=== PATIENT | female | born 1975 | race Caucasian/White ===

== ENCOUNTER → 2020-11-28 10:21 | Outpatient (BNVA) | payer MEDICARE, MEDICAID, SELFPAY | PROVIDERS: Family Provider Nurse Practitioner; PCP Nurse Practitioner; Visit Provider Nurse Practitioner Family | DX: S49.92XA Unspecified injury of left shoulder and upper arm, initial encounter (principal); M25.512 Pain in left shoulder; X58.XXXA Exposure to other specified factors, initial encounter | CPT/HCPCS: 73030 ==

== ENCOUNTER → 2021-02-20 11:33 | Outpatient (BNVA) | payer MEDICARE, SELFPAY | PROVIDERS: Family Provider Nurse Practitioner; PCP Nurse Practitioner; Visit Provider Nurse Practitioner Family | DX: Z01.419 Encounter for gynecological examination (general) (routine) without abnormal findings (principal) | CPT/HCPCS: 88175 ==

== ENCOUNTER → 2021-03-10 11:28 | Outpatient (BNVA) | payer MEDICARE, MEDICAID, SELFPAY | PROVIDERS: Family Provider Nurse Practitioner; PCP Nurse Practitioner; Visit Provider Obstetrics & Gynecology | DX: N93.9 Abnormal uterine and vaginal bleeding, unspecified (principal) | CPT/HCPCS: 88305 ==

== ENCOUNTER → 2021-03-23 14:26 | Outpatient (BNVA) | payer MEDICARE, MEDICAID, SELFPAY | PROVIDERS: Family Provider Nurse Practitioner; PCP Nurse Practitioner; Visit Provider Obstetrics & Gynecology | DX: N93.9 Abnormal uterine and vaginal bleeding, unspecified (principal) | CPT/HCPCS: 76830 ==

== ENCOUNTER → 2021-06-01 10:58 | Outpatient (BNVA) | payer MEDICARE, MEDICAID, SELFPAY | PROVIDERS: Family Provider Nurse Practitioner; PCP Nurse Practitioner; Visit Provider Obstetrics & Gynecology | DX: N81.4 Uterovaginal prolapse, unspecified (principal); N93.9 Abnormal uterine and vaginal bleeding, unspecified; R32 Unspecified urinary incontinence; Z20.822 Contact with and (suspected) exposure to COVID-19 | CPT/HCPCS: 87635 ==

== ENCOUNTER 2021-06-06 09:14 | Observation (INO) | payer MEDICARE, MEDICAID, SELFPAY ==
[2021-06-01 11:52] VITALS: BMI 33.4
[2021-06-01 12:27] LABS: Basophils # 0.1 10^3/uL (0.0-0.1); Basophils % 0.7 %; Eosinophils # 0.5 10^3/uL (0.0-0.8); Eosinophils % 4.3 %; Hemoglobin 13.8 g/dL (11.5-15.3); Lymphocytes # 3.2 10^3/uL (0.8-4.8); Lymphocytes % 30.7 %; Mean Corpuscular HGB Conc 32.9 g/dL (30.0-36.0); Mean Corpuscular Hemoglobin 32.7 pg (28.0-34.0); Mean Corpuscular Volume 99.5 fl (81-99); Mean Platelet Volume 11.2 fL (7.4-10.4); Monocytes # 0.4 10^3/uL (0.2-0.9); Neutrophils # 6.22 10^3/uL (1.8-7.7); Nucleated Red Blood Cells % 0 %; Platelet Count 344 10^3/cmm (130-400); Red Blood Count 4.22 10^6/uL (4.1-5.3); Red Cell Distribution Width 13.2 % (12.1-15.1); White Blood Count 10.4 10^3/uL (4.0-10.0)
--- NOTE | 2021-06-01 12:37 | ECG_ITS ---
[facility] Test Date: 2021-06-01 Pat Name: Martha Mccoy Department: Room: Gender: Female Physician Executive: : 1975 Requested By: Sue Muhammad Order Number: [id number] Shwetha MD: Radha Bhagat M.D. Measurements Intervals [place] Rate: 70 P: -88 [place]: 212 QRS: 44 QRSD: 134 T: 130 QT: 449 QTc: 485 Interpretive Statements ELECTRONIC ATRIAL PACEMAKER ELECTRONIC VENTRICULAR PACEMAKER ABNORMAL RHYTHM ECG INTERPRETATION BASED ON A DEFAULT AGE OF 40 YEARS Compared to ECG 08/08/2017 13:19:50 Sinus tachycardia no longer present Intraventricular conduction delay no longer present Electronically Signed On 06-02-2021 7:06:19 CDT by Radha Bhagat M.D. [email or web address] [email or web address] [email or web address] va [facility] center.Blekko/store/[id number] f
[2021-06-01 12:51] LABS: Alanine Aminotransferase 15 U/L (0-33); Albumin Level 3.8 g/dL (3.5-5.2); Alkaline Phosphatase 106 IU/L (35-105); Anion Gap 12.7 (5-19); Aspartate Amino Transferase 14 U/L (0-32); Blood Urea Nitrogen 5 mg/dL (6-20); Calcium 8.4 mg/dL (8.5-10.5); Carbon Dioxide 28 mmol/L (22-29); Chloride 96 mmol/L (98-107); Globulin 2.9 g/dL (1.3-4.6); Glomerular Filtration Rate 107.2 mL/min (90-130); Glucose 109 mg/dL (65-115); Osmolality Calculated 274 mOsm/kg (285-295); Potassium 3.7 mmol/L (3.5-5.1); Sodium 133 mmol/L (136-145); Total Bilirubin 0.3 mg/dL (0.15-1.2); Total Protein 6.7 g/dL (6.6-8.7)
--- NOTE | 2021-06-01 15:35 | ANES.PREANE2 ---
Pre-Anesthetic Assessment Pre-Anesthetic Assessment: Height/Weight: Height 1.74 m Weight 101.151 kg Preop Diagnosis: uterine prolapse, abnormal uterine bleeding, cystocele, urinary incontinenc Proposed Procedure: Operation Date: 06/06/21 07:00 Proposed Procedures p Total Vaginal Hysterectomy 56606 [id number] 37546 N81.4 N81.0 R32 N93.9(Not Applicable) - Sue Muhammad MD s Salpingo Oophorectomy (Open)(Not Applicable) - Sue Muhammad MD s Anterior Repair(Not Applicable) - Sue Muhammad MD s Posterior Repair(Not Applicable) - Sue Muhammad MD Was Beta Scottie taken within 24 hours: N/A Was Clonidine taken within 24 hours: N/A Exam: Pre-Anes Outpt Exam: alert, oriented x 3, clear to auscultation bilaterally and regular rate & rhythm Airway: Submandibular: WNL Cervical ROM: WNL Dentition: Chipped and Other (extremely poor dentition w many missing, fractured, loose and decayed; discussed dental injury) Pulmonary: Pulmonary: COPD, JONES, PND and SOB CV/HEM: CV/HEM: CHF Comments: JAMES w EF 20-25 %, global hypokinesia; AICD/Pacemaker device; Hepatic: Hepatic: None reported GI: GI: None reported Metabolic: Comments: Obesity Neuropsych: Neuropsych: None reported Anesthetic Plan: ASA status: 4 Anesthesia: General (Discussed need for Arterial line and 2nd large bore IV; possible blood transfusions) Risk of > 500 ml blood loss (7ml/kg in children): Yes, adequate IV access and fluids planned PFSH Anesthesia PFSH: Medical History CHF (congestive heart failure) Chronic obstructive pulmonary disease, unspecified Depression Gastric reflux Gingivitis History of pacemaker Vitamin D deficiency Surgical History History of cholecystectomy History of implantable cardiac defibrillator (ICD) History of tubal ligation Family History Mother Cancer colon Thyroid disease Grandfather Cancer Paternal - pancreatic Grandmother Cancer Maternal - colon Thyroid disease Maternal and Paternal Grandfather Cancer Maternal - prostate Stroke Paternal Daughter Clotting disorder Antiphospholipid syndrome Father Hyperlipidemia Hypertension Denies family history of Diabetes CAD (coronary artery disease) Chronic kidney disease (CKD) Bleeding disorder Female Reproductive History: Date of last menstrual period: 04/28/21 Data Anesthesia CBC & Chem 7: 06/01/21 12:08 06/01/21 12:08 Other Labs: Laboratory Results - last 48 hr 06/01/21 06/01/21 12:08 12:08 WBC 10.4 H RBC 4.22 Hgb 13.8 Hct 42.0 MCV 99.5 H MCH 32.7 MCHC 32.9 RDW 13.2 Plt Count 344 MPV 11.2 H Neut % (Auto) 60.0 Lymph % (Auto) 30.7 [place] % (Auto) 4.0 Eos % (Auto) 4.3 Baso % (Auto) 0.7 Neut # (Auto) 6.22 Lymph # (Auto) 3.2 [place] # (Auto) 0.4 Eos # (Auto) 0.5 Baso # (Auto) 0.1 Nucleated RBC % (auto) 0 Nucleated RBCs # 0.0 Sodium 133 L Potassium 3.7 Chloride 96 L Carbon Dioxide 28 Anion Gap 12.7 BUN 5 L Creatinine 0.6 GFR Calculation 107.2 Glucose 109 Calculated Osmolality 274 L Calcium 8.4 L Total Bilirubin 0.3 AST 14 ALT 15 Alkaline Phosphatase 106 H Total Protein 6.7 Albumin 3.8 Globulin 2.9 Cardiac Studies: No Data to Display
--- NOTE | 2021-06-01 15:38 | SUR.PREOP ---
[address] miller with anesthesia and asked if pt should take her entresto am of surgery and stated that she should not take this rx on day of surgery, called pt and informed her of this and verbalized understanding
[2021-06-06] VITALS (17 sets, daily range): BP systolic 94–113; BP diastolic 36–73; PULSE 70–80; RESP 15–23; TEMP 36.3–36.9; O2SAT 92–96
[2021-06-06] MEDS: sodium chloride 0.9% 1,000 ML 30 ML IV (06:32)
[2021-06-06] MEDS: acetaminophen 1,000 MG/100 ML PIGGYBACK 400 MG IV (06:40)
[2021-06-06] MEDS: phenazopyridine 100 mg Tablet 200 MG PO (06:40)
[2021-06-06] MEDS: CELEcoxib 100 mg Capsule 400 MG PO (06:40)
[2021-06-06] MEDS: gabapentin 300 mg Capsule PO (06:40)
[2021-06-06] MEDS: ketorolac 30 mg/mL INJ IVP ×3 (06:42→18:38)
--- NOTE | 2021-06-06 06:59 | W.PM.OPSUD ---
Surgery/Procedure H&P Update DATE OF PROCEDURE: June 06, 2021 DATE H&P PERFORMED: 06/01/21 H&P UPDATE INFORMATION: I have reviewed H&P completed within last 30 days, I have examined patient prior to procedure and No changes to prior documentation PREOP DIAGNOSIS: uterine prolapse, abnormal uterine bleeding, cystocele, urinary incontinenc PLANNED PROCEDURE: Operation Date: 06/06/21 07:00 Proposed Procedures p Total Vaginal Hysterectomy 00718 18194 60588 N81.4 N81.0 R32 N93.9(Not Applicable) - Sue Muhammad MD s Salpingo Oophorectomy (Open)(Not Applicable) - Sue Muhammad MD s Anterior Repair(Not Applicable) - Sue Muhammad MD s Posterior Repair(Not Applicable) - Sue Muhammad MD
[2021-06-06 07:00] LABS: OR HCG Qualitative Urine Negative (Negative)
[2021-06-06] MEDS: vasopressin 20 unit/mL INJ 8 UNIT INJECTION (07:54)
--- NOTE | 2021-06-06 08:07 | ANES.PROC ---
Anesthesia Procedures Procedure/Date: 06/06/21 Arterial Line: Time Out Performed: Yes Consent: requested by attending/covering physician, from patient, risks and benefits reviewed and patient agrees to proceed Size (Gauge): 20 Technique Used: direct puncture technique Post-Procedure: dry sterile dressing placed Patient Tolerated Procedure: well Complications: none Site: right and radial
--- NOTE | 2021-06-06 09:06 | PM.OP ---
Operative Report Date of procedure: June 06, 2021 Pre-op Diagnosis: uterine prolapse, abnormal uterine bleeding, cystocele, urinary incontinenc Post-op diagnosis: other Post-op Diagnosis: no urinary incontinence post procedure Post-op Findings: enlarged uterus, normal appearing ovaries. No fallopian tubes present. Loose perineal body. No urinary incontinence Procedure Done: total vaginal hysterectomy, perineorrhaphy, cystoscopy Specimens removed/disposition: uterus to pathology Surgeon: Sue Muhammad Anesthesia: General Estimated blood loss (mL): 100 IV fluids (mL): 800 Urine output (mL): 100 Complications: none Findings: enlarged uterus, normal appearing ovaries. No fallopian tubes present. Loose perineal body. No urinary incontinence Condition: stable Disposition: floor Procedure: The patient was taken to the operating room where general anesthesia was administered and found to be adequate. She was prepped and draped in the normal sterile fashion in the dorsal lithotomy position in [facility]. A Sun catheter was placed. A weighted speculum was placed into the vagina and the anterior and posterior lip of the cervix was grasped with a Mcgraw tenaculum. 10 mL of dilute Pitressin was injected at the vesicovaginal junction. A circumferential incision was made at the vesicovaginal junction and the vaginal mucosa reflected cephalad. The posterior peritoneum was entered sharply with the Metzenbaum scissors and the long weighted speculum replaced. Using the Lori clamps the uterosacral ligaments were clamped cut and suture-ligated. Then sequentially the uterine arteries and cardinal ligaments were clamped cut and suture-ligated. A single-tooth tenaculum was used to deliver the uterus. The utero-ovarian ligaments were clamped cut and suture-ligated bilaterally and the specimen was removed. The bilateral ovaries were visualized and found to be normal. The fallopian tubes were not identified. The peritoneum was closed with a pursestring using 2-0 Vicryl. The vaginal cuff was closed with 0 Vicryl in a running locked pattern incorporating the uterosacral ligaments into the lateral aspects of the vaginal cuff. The Sun catheter was removed and the cystoscope advanced into the bladder. The patient was given indigo carmine and bilateral spill was noted. There were no injuries or deficits noted in the bladder. The cystoscope was removed. Pressure was applied to the bladder. No incontinence was witnessed. The Sun was replaced. Attention was then turned to the perineorrhphy. Allis clamps were placed on the posterior fourchette. A 3 cm wedge of the fourchette was removed. This was repaired in the usual fashion with O-vicryl in a continuous running stitch. Vaginal packing was placed. The patient tolerated the procedure well. Sponge, lap and needle counts were correct times three. She was taken to the recovery room in stable condition.
[2021-06-06] MEDS: HYDROcodone-acetaminophen 5-325 mg Tablet PO ×2 (10:43→21:18)
[2021-06-06] MEDS: dextrose 5%-lactated ringers 1,000 ML 125 ML IV ×2 (10:44→20:13)
--- NOTE | 2021-06-06 10:53 | P.ANESUD_ITS ---
Pre-Anesthetic Update Pre-Anesthetic Assessment: Date of Surgery/Procedure: 06/06/21 Preop Patricia gnosis: uterine prolapse, abnormal uterine bleeding, cystocele, urinary incontinenc Proposed Procedure: Operation Date: 06/06/21 07:00 Proposed Procedures p Total Vaginal Hysterectomy 28123 21752 84190 N81.4 N81.0 R32 N93.9(Not Applicable) - Sue Muhammad MD s Salpingo Oophorectomy (Open)(Not Applicable) - Sue Muhammad MD s Anterior Repair(Not Applicable) - Sue Muhammad MD s Posterior Repair(Not Applicable) - Sue Muhammad MD Any changes to Pre-Anesthetic Assessment?: No Last Intake: Intake Last Liquid Date 06/05/21 Last Liquid Time 00:00 Last Solid Date 06/05/21 Last Solid Time 20:00 Labs Last 48hrs: Laboratory Results - last 48 hr 06/06/21 06:58 Urine HCG, Qual Negative Vitals: Temperature 98.0 F 06/06/21 10:00 Temperature Source Axillary 06/06/21 10:00 Pulse Rate 70 06/06/21 10:30 Respiratory Rate 15 06/06/21 10:30 Blood Pressure 96/57 06/06/21 10:30 Blood Pressure Kortney n 70 06/06/21 10:30 Blood Pressure Pos ition Supine 06/06/21 10:30 Pulse Oximetry 93 06/06/21 10:30 Oxygen Delivery Me thod 06/06/21 10:30 Oxygen Flow Rate 2 06/06/21 10:30 Exam: Pre-Anes Outpt Exam: alert, oriented x 3 and clear to auscultation bilaterally Cardiac Studies: No Data to Display
[2021-06-06] MEDS: acetaminophen 325 mg Tablet 650 MG PO (14:35)
--- NOTE | 2021-06-06 15:50 | PC.NURSE ---
ultrasound at the bedside, pt off the monitor
[2021-06-06] MEDS: docusate sodium 100 mg Capsule PO (18:38)
[2021-06-06] MEDS: potassium chloride ER 10 mEq Tablet PO (18:39)
[2021-06-06] MEDS: FUROsemide 40 mg Tablet PO (18:39)
[2021-06-06] MEDS: alum-mag-hydroxide-sime 30 mL UDC PO (21:12)
[2021-06-06] MEDS: NON-FORMULARY MEDICATION (Sacubitril-Valsartan [Entresto] 49-51 mg Tablet) 1 EACH PO (21:13)
[2021-06-06] MEDS: carvedilol 3.125 mg Tablet PO (21:14)
[2021-06-06] MEDS: duloxetine 30 mg Capsule PO (21:15)
[2021-06-07 01:30] VITALS: BP 101/63; PULSE 70; RESP 16; O2SAT 97
[2021-06-07] MEDS: ketorolac 30 mg/mL INJ IVP (01:56)
[2021-06-07] MEDS: HYDROcodone-acetaminophen 5-325 mg Tablet PO ×2 (03:27→11:05)
[2021-06-07 03:50] VITALS: BP 107/63; PULSE 70; TEMP 36.7; O2SAT 98
[2021-06-07 05:20] LABS: Hematocrit 35.8 % (37.0-47.0); Hemoglobin 12.1 g/dL (11.5-15.3); Mean Corpuscular HGB Conc 33.8 g/dL (30.0-36.0); Mean Corpuscular Hemoglobin 33.6 pg (28.0-34.0); Mean Corpuscular Volume 99.4 fl (81-99); Mean Platelet Volume 10.6 fL (7.4-10.4); Platelet Count 344 10^3/cmm (130-400); White Blood Count 19.7 10^3/uL (4.0-10.0)
[2021-06-07] MEDS: alum-mag-hydroxide-sime 30 mL UDC PO (06:10)
[2021-06-07] MEDS: NON-FORMULARY MEDICATION (Sacubitril-Valsartan [Entresto] 49-51 mg Tablet) 1 EACH PO (09:12)
[2021-06-07] MEDS: docusate sodium 100 mg Capsule PO (09:13)
[2021-06-07] MEDS: spironolactone 25 mg Tablet 12.5 MG PO (09:13)
[2021-06-07] MEDS: calcium carbonate 500 mg Chew Tablet 1000 MG PO (09:13)
[2021-06-07] MEDS: duloxetine 30 mg Capsule PO (09:13)
[2021-06-07] MEDS: FUROsemide 40 mg Tablet PO (09:13)
[2021-06-07] MEDS: potassium chloride ER 10 mEq Tablet PO (09:14)
[2021-06-07] MEDS: carvedilol 3.125 mg Tablet PO (09:14)
[2021-06-07 09:19] VITALS: BP 106/65; PULSE 72; RESP 16; TEMP 36.4; O2SAT 95
--- NOTE | 2021-06-07 10:14 | PM.DCS ---
Discharge Providers Date of Admission: 06/06/21 09:14 Date of Discharge: June 07, 2021 Attending Provider at Admission: Sue Muhammad MD Attending Provider at Discharge: Sue Muhammad MD Primary Care Provider: CARLOS Castellano Diagnoses at Discharge Discharge Diagnosis (1) Postoperative state: Status: Acute Reason for Visit Reason for Visit: total vaginal hysterectomy Physical Exam Narrative: EXAM NARRATIVE: The patient is doing well this morning. No concerns or complaints. Packing and tran catheter has been removed. Const: COMMON NORMALS: no acute distress, average body habitus, patient oriented x3, no limitations, healthy appearing and alert GENERAL APPEARANCE: cooperative, comfortable, well kempt and well developed ORIENTATION/CONSCIOUSNESS: Yes awake, Yes oriented to person, Yes oriented to place and Yes oriented to time Resp: COMMON NORMALS: normal respiratory effort EFFORT & INSPECTION: Yes able to speak in complete sentences GI: COMMON NORMALS: Soft to palpation and non-tender PALPATION: Yes Soft to palpation : COMMON NORMALS: Yes normal external appearance Extremity: COMMON NORMALS: no clubbing, cyanosis or edema and no calf tenderness Neuro: COMMON NORMALS: patient oriented x3 SENSORIUM/ORIENTATION: Yes alert, Yes oriented to person, Yes oriented to place and Yes oriented to time Psych: COMMON NORMALS: mental status grossly normal, cooperative, normal affect and speech normal APPEARANCE: Yes grossly normal and Yes well kempt ATTITUDE: Yes calm and Yes engaged ACTIVITY/MOTOR BEHAVIOR: Yes appropriate eye contact SPEECH: Yes normal speech Urinary Catheter Management^: Tran: Cath Placed During This Visit: yes, but has since been removed by the nurse Reason for Continuing Indwelling Catheter: Decision to DC Catheter Urinary Catheter Date of Insertion: 06/06/21 Urinary Catheter Time of Insertion: 07:34 Date Urinary Catheter Removed: 06/07/21 Time Urinary Catheter Discontinued: 07:15 Discharge Data Data Completed and Pending: Completed Studies During Hospitalization Category Date Time Status Pathology: Surgic al [PTH] Routine Pth 06/06/21 09:52 Completed Labs from last 24 hours 06/07/21 05:12 WBC 19.7 H RBC 3.60 L Hgb 12.1 Hct 35.8 L MCV 99.4 H MCH 33.6 MCHC 33.8 RDW 13.0 Plt Count 344 MPV 10.6 H Vitals: Last Vital Signs Temp 97.5 F L 06/07/21 09:19 Pulse 72 06/07/21 09:19 Resp 16 06/07/21 09:19 BP 106/65 06/07/21 09:19 Pulse Ox 95 06/07/21 09:19 Discharge Plan Discharge Patient Disposition: Home Condition: Stable Prescriptions: New hydrocodone-acetaminophen 5-325 mg Tablet 1 tab PO Q4H PRN (Reason: Moderate To Severe Pain) Qty: 30 RF: 0 Continued carvedilol [Coreg] 3.125 mg tablet 3.125 mg PO BID RF: 0 nitroglycerin 0.4 mg tablet, sublingual 0.4 mg SUBLINGUAL Q5M PRN (Reason: chest pain) RF: 0 potassium chloride 10 mEq capsule, extended release 10 meq PO BID RF: 0 furosemide [Lasix] 40 mg tablet 40 mg PO Q12H RF: 0 spironolactone [Aldactone] 25 mg tablet 12.5 mg PO DAILY RF: 0 albuterol sulfate 2.5 mg /3 mL (0.083 %) solution for nebulization 2.5 mg INHALATION Q4H PRN (Reason: bronchospasm) Qty: 180 RF: 5 albuterol sulfate [ProAir HFA] 90 mcg/actuation HFA aerosol inhaler 2 puff inhalation QID PRN (Reason: shortness of breath or wheezing) Qty: 8.5 RF: 2 duloxetine 30 mg capsule,delayed release(DR/EC) 30 mg PO BID 90 Days Qty: 180 RF: 1 ibuprofen 800 mg tablet 800 mg PO TID PRN (Reason: pain) 14 Days Qty: 42 RF: 0 aspirin 325 mg Tablet 325 mg PO DAILY RF: 0 nystatin 100,000 unit/gram ointment 1 applic TOPICAL BEDTIME RF: 0 triamcinolone acetonide 0.1 % ointment 1 applic TOPICAL TID PRN (Reason: abrasions) RF: 0 mupirocin 2 % ointment 1 applic TOPICAL TID PRN (Reason: rash) RF: 0 chlorhexidine gluconate [Peridex] 0.12 % mouthwash 15 ml BUCCAL BID PRN (Reason: mouth infection) RF: 0 Entresto 49-51 mg Tablet 1 tab PO BID RF: 0 Discharge Orders: Discharge Order (Routine); Ordered 06/07/21 Ordered By: Sue Muhammad Referrals: Sue Muhammad MD [Physician] - 06/19/21 8:45 am Patient Instructions: Spironolactone (By mouth), Ibuprofen (By mouth), Potassium Chloride (By mouth), Nystatin (On the skin), Triamcinolone (On the skin), Vaginal Hysterectomy (GEN), OB Discharge Report, OB Food/Drug Interaction Guide, Opioid Safety Discharge Attestations Time Spent in Discharge Care*: less than 30 min Quality Metrics Clinical Quality Measures During this hospital stay, did patient experience: None Coding Level of Care Code Acute [facility] note Diagnoses Postoperative state Z98.890
[2021-06-07 13:10] VITALS: BP 111/58; PULSE 70; RESP 16; TEMP 36.7; O2SAT 95
--- NOTE | 2021-06-07 14:44 | PC.NURSE ---
Pt home medication, Phillip, left at hospital. Nurse antonetteer and primary nurse counted 120 pills in med room under video surveillance. Nurse field marketing manager taking medication to patients home in [place].
--- NOTE | 2021-06-07 16:48 | ANE.PACU2 ---
Inpatient post-anesthesia follow up: Airway intact: Yes Vital signs: Temperature 98.0 F Pulse Rate 70 Respiratory Rate 16 Blood Pressure 111/58 Pulse Oximetry 95 Oxygen Delivery Me thod Room Air Oxygen Flow Rate 2 Fraction of Inspir ed Oxygen Hydration adequate: Yes Nausea and vomiting: No Pain level: 3 Mental status: Baseline
--- NOTE | 2021-06-09 14:13 | PC.RESP ---
PULMONARY REHAB INFORMATION SENT TO PATIENT.
== END 2021-06-07 13:10 | disposition home or self-care (01) ==
LOC: OBGYN 09:15
PROVIDERS: Anesthesiology; Admitting Provider Obstetrics & Gynecology; PCP Nurse Practitioner; Visit Provider Obstetrics & Gynecology
PROC: (CPT 12002; principal; 2021-06-06 07:00)
PROC: (CPT 58661; 2021-06-06 07:00)
PROC: 0TJB8ZZ Inspection of Bladder, Via Natural or Artificial Opening Endoscopic (ICD-10-PCS; CPT 52000; 2021-06-06 07:00)
PROC: 0DQW0ZZ Repair Peritoneum, Open Approach (ICD-10-PCS; CPT 56810; 2021-06-06 07:00)
DX: N81.4 Uterovaginal prolapse, unspecified (principal); N93.9 Abnormal uterine and vaginal bleeding, unspecified; R32 Unspecified urinary incontinence; J44.9 Chronic obstructive pulmonary disease, unspecified; I50.9 Heart failure, unspecified; E66.9 Obesity, unspecified; Z68.33 Body mass index [BMI] 33.0-33.9, adult; K21.9 Gastro-esophageal reflux disease without esophagitis; E55.9 Vitamin D deficiency, unspecified; Z95.0 Presence of cardiac pacemaker
CPT/HCPCS: 12002; 58260; 36415; 80053; 81025; 84703; 85025; 85027; 87086; 88307; 93005; 96365; 96374; G0378; J0330; J0690; J1100; J1885; J2405; J3010; J3490; J7030

== ENCOUNTER → 2021-06-14 09:40 | Outpatient (BNVA) | payer MEDICARE, MEDICAID, SELFPAY | PROVIDERS: PCP Nurse Practitioner; Visit Provider Nurse Practitioner | DX: Z13.6 Encounter for screening for cardiovascular disorders (principal); J44.9 Chronic obstructive pulmonary disease, unspecified; E55.9 Vitamin D deficiency, unspecified; K05.10 Chronic gingivitis, plaque induced; F32.9 Major depressive disorder, single episode, unspecified; M25.512 Pain in left shoulder | CPT/HCPCS: 80053; 80061; 82306; 85025 ==

== ENCOUNTER → 2021-07-07 09:38 | Outpatient (BNVA) | payer MEDICARE, MEDICAID, SELFPAY | PROVIDERS: PCP Nurse Practitioner; Visit Provider Nurse Practitioner | DX: R73.9 Hyperglycemia, unspecified (principal) | CPT/HCPCS: 83036 ==

== ENCOUNTER → 2021-12-04 14:32 | Outpatient (BNVA) | payer MEDICARE, MEDICAID, SELFPAY | PROVIDERS: PCP Nurse Practitioner; Visit Provider Nurse Practitioner Family | DX: I50.9 Heart failure, unspecified (principal); R73.9 Hyperglycemia, unspecified; E55.9 Vitamin D deficiency, unspecified; J44.9 Chronic obstructive pulmonary disease, unspecified; M25.512 Pain in left shoulder | CPT/HCPCS: 73030; 80053; 80061; 82306; 82607; 83036; 84443; 85025 ==

== ENCOUNTER → 2022-01-22 14:30 | Outpatient (BNVA) | payer MEDICARE, MEDICAID, SELFPAY | PROVIDERS: PCP Nurse Practitioner; Visit Provider Nurse Practitioner | DX: M25.562 Pain in left knee (principal) | CPT/HCPCS: 73562 ==

== ENCOUNTER 2022-03-01 09:16 | Outpatient (CLI) | payer MEDICARE, MEDICAID, SELFPAY ==
--- NOTE | 2022-03-01 | CT_ITS ---
WS: [id number] CT ABDOMEN PELVIS TECHNIQUE: Noncontrast CT of the abdomen and pelvis with coronal and sagittal reformatted images. CLINICAL INFORMATION: R15.9 - Full incontinence of feces COMPARISON: None. DLP: 1213.[address] scans at [facility] use at least one of these dose optimization techniques: automated e xposure control; mA and/or kV adjustment per patient size (includes targeted exams where dose is matc hed to clinical indication); or iterative reconstruction. FINDINGS: Prior postoperative changes hysterectomy and cholecystectomy. Noncontrast liver is normal. Normal non contrast spleen. Normal GE junction. Lung bases are well aerated. Slight subsegmental atelectasis LEF T lower lobe. Adrenal glands are normal. No hydronephrosis in either kidney. Normal noncontrast pancreas. Normal ca liber abdominal aorta. Mild aortic calcification. Normal sigmoid colon. A few diverticuli. No evidenc e of acute diverticulitis. No evidence of high-grade small or large bowel destruction. No abdominal or pelvic lymphadenopathy. No inguinal lymphadenopathy. Tiny fat-containing umbilical he rnia. Lobulated RIGHT ovarian cystic lesion largest measuring 2.2 x 2.5 cm. This can be followed up w ith ultrasound. Benign-appearing bone island RIGHT ilium. CT/CT abdomen pelvis wo con [id number] IMPRESSION: 1. Prior hysterectomy and cholecystectomy. 2. A few sigmoid diverticuli. No evidence of acute diverticulitis 3. Colon otherwise appears normal. Normal appendix in the RIGHT lower quadrant . 4. Lobulated RIGHT ovarian cystic lesions the largest measuring 2.5 x 2.2 CM. This can be followed up with ultrasound. 5. No free fluid in the abdomen or pelvis. 6. Slight subsegmental atelectasis LEFT lower lobe. 7. No other acute findings.
== END 2022-03-01 09:17 | disposition home or self-care (01) ==
LOC: RAD 09:23
PROVIDERS: PCP Nurse Practitioner; Visit Provider Nurse Practitioner
DX: R15.9 Full incontinence of feces (principal)
CPT/HCPCS: 74176

== ENCOUNTER → 2022-03-13 15:33 | Outpatient (BNVA) | payer MEDICARE, MEDICAID, SELFPAY | PROVIDERS: PCP Nurse Practitioner; Visit Provider Nurse Practitioner | DX: J44.9 Chronic obstructive pulmonary disease, unspecified (principal) | CPT/HCPCS: 80048 ==

== ENCOUNTER 2022-04-13 13:17 | Outpatient (CLI) | payer MEDICARE, MEDICAID, SELFPAY ==
--- NOTE | 2022-04-13 13:00 | US_ITS ---
WS: [id number] TRANSABDOMINAL PELVIC ULTRASOUND HISTORY: N83.209 - Unspecified ovarian cyst, unspecified side COMPARISON: CT 03/01/2020 and prior ultrasound 03/23/2021 Uterus has been removed. No midline mass. Right ovary: 4.1 cm x 2.2 cm x 2.5 cm; limited evaluation of the RIGHT ovary. The ovary appears very slightly enlarged. Small cystlike structures are identified. No transvaginal imaging is performed. Left ovary: 2.2 cm x 1.9 cm x 1.7 cm; limited visualization. No free fluid in the cul-de-sac. US/US pelvic complete* [id number] IMPRESSION: 1. Hysterectomy since the prior study. 2. This study is inadequate to evaluate the ovaries for a possible mass or dane luate cystic masses. Only transabdominal abdominal imaging is submitted. Recomm end transvaginal imaging at no additional charge.
== END 2022-04-13 13:18 | disposition home or self-care (01) ==
LOC: RAD 13:18
PROVIDERS: PCP Nurse Practitioner; Visit Provider Nurse Practitioner
DX: N83.209 Unspecified ovarian cyst, unspecified side (principal); Z90.710 Acquired absence of both cervix and uterus
CPT/HCPCS: 76856

== ENCOUNTER 2022-06-12 12:02 | Outpatient (CLI) | payer OTHER, MEDICAID, SELFPAY ==
--- NOTE | 2022-06-12 12:15 | US_ITS ---
WS: [id number] TRANSABDOMINAL PELVIC AND TRANSVAGINAL PELVIC ULTRASOUND HISTORY: N83.201 - Unspecified ovarian cyst, right side COMPARISON: 04/13/2022 Status post hysterectomy. No midline pelvic mass identified. Right ovary: 4.0 cm x 2.3 cm x 3.5 cm. RIGHT ovary is identified and contains several small follicles and a very small cysts. The cyst measures 2.3 x 2.5 x 2.3 cm. Normal vascularity in the adjacent ova ry. Left ovary: Not identified. No adnexal mass. No free fluid. US/US pelvic with transvaginal IMPRESSION: 1. Status post hysterectomy. No midline mass. 2. Very small RIGHT ovarian cyst with a maximum diameter of 2.5 cm. No solid m ass. 3. The LEFT ovary is not identified. On a recent CT of 03/01/2022 the LEFT ovar y is very high in the LEFT adnexa and would probably not be visualized on trans abdominal or transvaginal imaging.
== END 2022-06-12 12:03 | disposition home or self-care (01) ==
LOC: RAD 12:03
PROVIDERS: PCP Nurse Practitioner; Visit Provider Nurse Practitioner
DX: Z76.89 Persons encountering health services in other specified circumstances (principal)
CPT/HCPCS: 76830; 76856

== ENCOUNTER → 2022-07-17 09:36 | Outpatient (BNVA) | payer MEDICARE, MEDICAID, SELFPAY | PROVIDERS: PCP Nurse Practitioner; Visit Provider Nurse Practitioner | DX: J44.9 Chronic obstructive pulmonary disease, unspecified (principal); K64.4 Residual hemorrhoidal skin tags; F41.8 Other specified anxiety disorders; E55.9 Vitamin D deficiency, unspecified; Z23 Encounter for immunization | CPT/HCPCS: 80053; 81000; 82306; 84443; 85025 ==

== ENCOUNTER → 2022-10-24 08:31 | Outpatient (BNVA) | payer MEDICARE, MEDICAID, SELFPAY | PROVIDERS: PCP Nurse Practitioner; Visit Provider Nurse Practitioner | DX: E55.9 Vitamin D deficiency, unspecified (principal); F41.8 Other specified anxiety disorders; K05.10 Chronic gingivitis, plaque induced; M54.9 Dorsalgia, unspecified; M54.50 Low back pain, unspecified | CPT/HCPCS: 80053; 82306; 84443; 85025; 85651; 86140 ==

== ENCOUNTER → 2022-11-21 09:01 | Outpatient (BNVA) | payer MEDICARE, MEDICAID, SELFPAY | PROVIDERS: PCP Nurse Practitioner; Visit Provider Nurse Practitioner | DX: M54.50 Low back pain, unspecified (principal) | CPT/HCPCS: 72100 ==

== ENCOUNTER → 2023-01-16 12:30 | Outpatient (BNVA) | payer MEDICARE, MEDICAID, SELFPAY | PROVIDERS: PCP Nurse Practitioner; Visit Provider Nurse Practitioner | DX: M25.551 Pain in right hip (principal); M25.552 Pain in left hip; F41.8 Other specified anxiety disorders | CPT/HCPCS: 73522 ==

== ENCOUNTER → 2023-05-29 15:16 | Outpatient (BNVA) | payer MEDICARE, MEDICAID, SELFPAY | PROVIDERS: PCP Nurse Practitioner; Visit Provider Nurse Practitioner | DX: M51.37 Other intervertebral disc degeneration, lumbosacral region (principal); J44.9 Chronic obstructive pulmonary disease, unspecified; F41.8 Other specified anxiety disorders; K05.10 Chronic gingivitis, plaque induced; E55.9 Vitamin D deficiency, unspecified; K64.4 Residual hemorrhoidal skin tags; L30.8 Other specified dermatitis | CPT/HCPCS: 80053; 82306; 82607; 84443 ==

== ENCOUNTER → 2023-08-21 15:18 | Outpatient (BNVA) | payer MEDICARE, MEDICAID, SELFPAY | PROVIDERS: PCP Nurse Practitioner; Visit Provider Nurse Practitioner | DX: F41.8 Other specified anxiety disorders (principal) | CPT/HCPCS: 81000 ==

== ENCOUNTER → 2023-09-10 15:37 | Outpatient (BNVA) | payer MEDICARE, MEDICAID, SELFPAY | PROVIDERS: PCP Nurse Practitioner; Visit Provider Nurse Practitioner Family | DX: R05.9 Cough, unspecified (principal) | CPT/HCPCS: 87400; 87426 ==

== ENCOUNTER → 2023-10-31 16:04 | Outpatient (BNVA) | payer MEDICARE, MEDICAID, SELFPAY | PROVIDERS: PCP Nurse Practitioner; Visit Provider Nurse Practitioner | DX: E87.6 Hypokalemia (principal) | CPT/HCPCS: 80048 ==

== ENCOUNTER → 2023-12-03 08:48 | Outpatient (BNVA) | payer MEDICARE, MEDICAID, SELFPAY | PROVIDERS: PCP Nurse Practitioner; Referring Provider Nurse Practitioner; Visit Provider Surgery | DX: Z12.11 Encounter for screening for malignant neoplasm of colon (principal) | CPT/HCPCS: 99024; 99204 ==

== ENCOUNTER → 2023-12-05 13:31 | Outpatient (BNVA) | payer MEDICARE, MEDICAID, SELFPAY | PROVIDERS: PCP Nurse Practitioner; Visit Provider Nurse Practitioner | DX: F41.8 Other specified anxiety disorders (principal); E55.9 Vitamin D deficiency, unspecified | CPT/HCPCS: 80053; 82306 ==

== ENCOUNTER 2024-01-15 00:53 | Emergency (ER) | payer MEDICARE, MEDICAID, SELFPAY ==
[2024-01-15] VITALS (11 sets, daily range): BP systolic 120–151; BP diastolic 78–82; PULSE 70–92; RESP 16–26; TEMP 36.6; O2SAT 91–98; BMI 32.6
--- NOTE | 2024-01-15 00:55 | ECG_ITS ---
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 Measurements Intervals [place] Rate: 70 P: -85 DC: 249 QRS: 57 QRSD: 134 T: 110 QT: 438 QTc: 473 Interpretive Statements ELECTRONIC ATRIAL PACEMAKER INTRAVENTRICULAR CONDUCTION DELAY [130+ ms QRS DURATION] ANTEROSEPTAL MYOCARDIAL INFARCTION , OF INDETERMINATE AGE [40+ ms Q WAVE IN V1-V4] Compared to ECG 06/01/2021 12:51:30 Intraventricular conduction delay now present Myocardial infarct finding now present Ventricular-paced complex(es) or rhythm no longer present Electronically Signed On 01-15-2024 16:24:54 CDT by Jacinto Painter M.D. [id number]
--- NOTE | 2024-01-15 00:55 | XRR_ITS ---
PROCEDURE INFORMATION: Exam: XR Chest Exam date and time: 01/15/2024 1:01 AM Age: 48 years old Clinical indication: Angina; Prior surgery; Surgery date: 6+ months; Surgery type: Pacemaker; Additional info: Cp TECHNIQUE: Imaging protocol: Radiologic exam of the chest. Views: 1 view. COMPARISON: CR XR chest 2V* [id number] 02/17/2018 11:07 AM FINDINGS: Lungs: Bibasilar scarring. No consolidation. Pleural spaces: Unremarkable. No pleural effusion. No pneumothorax. Heart/Mediastinum: Heart remains enlarged. Left-sided pacing device and vascular calcification. Bones/joints: Unremarkable. XR/XR chest 1V portable [id number] IMPRESSION: No acute findings.
--- NOTE | 2024-01-15 01:06 | W.ED.CHESTPA ---
HPI - Chest Pain General: Chief Complaint: Chest Pain Stated Complaint: chest pressure/ pain with pacemkr Time Seen by Provider: 01/15/24 00:56 Source: patient Mode of arrival: ambulatory Limitations: no limitations History of Present Illness: 48-year-old female states she has been having chest pain over the last 24 hours states been a sharp pain in the center of her chest. Had some mild dyspnea she denies any worsening improving factors she denies any nausea or diaphoresis. She states she has also had a cough over the last 2 days Associated symptoms: Deny abdominal pain, dyspnea, fever(s), nausea or vomiting Review of Systems Const: Denies: fever(s), chills, body aches or change in appetite ENMT: Denies: throat pain or dental pain Card: Reports: chest pain Resp: Reports: non-productive cough; Denies: dyspnea GI: Denies: abdominal pain, nausea, vomiting or diarrhea Musc: Denies: neck pain or back pain Skin/Breast: Denies: rash Neuro: Denies: headache(s) PFSH ED PFSH: Medical History Implantable cardioverter-defibrillator (ICD) in situ Anxiety with depression External hemorrhoid Cigarette smoker Diverticula, colon Chronic intermittent steroid use Chronic obstructive pulmonary disease, unspecified CHF (congestive heart failure) Gastric reflux Gingivitis Vitamin D deficiency History of pacemaker Surgical History History of hysterectomy 06/06/2021 History of implantable cardiac defibrillator (ICD) History of cholecystectomy History of tubal ligation Family History Mother Cancer colon Thyroid disease Grandfather Cancer Paternal - pancreatic Grandmother Cancer Maternal - colon Thyroid disease Maternal and Paternal Grandfather Cancer Maternal - prostate Stroke Paternal Daughter Clotting disorder Antiphospholipid syndrome Father Hyperlipidemia Hypertension Denies family history of Diabetes CAD (coronary artery disease) Chronic kidney disease (CKD) Bleeding disorder Social History Smoking and tobacco/nicotine status: current every day tobacco/nicotine user cigarettes Second hand smoke exposure: Yes Alcohol intake: never Substance/Drug Use: never Caregiver/support person: No Lives independently: Yes Household members: spouse and children Housing: House Marital status: Number of children: 2 service: No Current occupational status: unemployed Current occupational exposures/hazards: No Pets and animals: Yes Do you think of yourself as: Straight/Heterosexual Current gender identity: Female Physical Exam Const: COMMON NORMALS: no acute distress, patient oriented x3 and healthy appearing HENMT: COMMON NORMALS: normocephalic and atraumatic HEAD & SCALP: normocephalic and atraumatic Eye: COMMON NORMALS: conjunctivae normal CONJUNCTIVA: Yes conjunctivae normal Neck/C-Spine: COMMON NORMALS: full ROM and supple Chest: COMMONS NORMALS: normal inspection of the chest OTHER: Point tenderness in her chest reproduces her pain Resp: COMMON NORMALS: normal respiratory effort, No retractions, No use of accessory muscles and clear to auscultation bilaterally AUSCULTATION: clear to auscultation bilaterally Cardio: COMMON NORMALS: regular rate, regular rhythm and No murmurs present (Cardio) RATE: regular rate RHYTHM: regular rhythm GI: COMMON NORMALS: Normal to inspection, nondistended, normoactive bowel sounds present, Soft to palpation, non-tender and no masses PALPATION: Yes Soft to palpation Extremity: COMMON NORMALS: normal to inspection and full ROM Neuro: COMMON NORMALS: patient oriented x3, moves all extremities and no focal motor deficits Psych: COMMON NORMALS: mental status grossly normal, Normal thought process present and cooperative THOUGHT PROCESS: Normal thought process present Skin: COMMON NORMALS: no rashes or lesions noted and no wounds GENERAL SKIN EXAM: no rashes or lesions noted Course Vital Signs: Vital signs: Vital Signs Temperature 97.8 F 01/15/24 00:59 Pulse Rate 70 01/15/24 02:24 Respiratory Rate 24 H 01/15/24 02:24 Blood Pressure 151/78 01/15/24 01:03 Pulse Oximetry 94 01/15/24 02:24 Oxygen Delivery Me thod Room Air 01/15/24 02:24 MDM - Chest Pain Medical Decision Making Patient presents with cough along with chest pain CT did show a pneumonitis likely a bronchitis with her COPD did give her Decadron here we will place her on Keflex she is point tender on exam her chest pain is likely chest wall pain troponins EKG here normal she is follow-up with PCP return if worsening Medical Records I reviewed the patient's medical records. Lab Data I reviewed the patient's lab results. 01/15/24 01:00 01/15/24 01:00 Radiology Impressions Chest X-Ray 01/15/24 00:55 IMPRESSION: No acute findings. Chest CTA 01/15/24 01:11 IMPRESSION: 1. No definite acute or occlusive PE. Minimal RML probable pulmonary arterial artifact attributable to motion versus less likely subtle PE as described. Consider short-term follow-up if symptoms persist. 2. Mild areas of bilateral mid to lower lung reticulonodular opacity with pneumonitis likely. Likely reactive mild lymphadenopathy. Recommend three-month follow-up. 3. Large heart and other chronic findings. Laboratory Results WBC 14.87 10^3/uL (3.29-11.43) H 01/15/24 01:00 RBC 4.77 10^6/uL (3.85-5.65) 01/15/24 01:00 Hgb 15.40 g/dL (11.27-16.99) 01/15/24 01:00 Hct 45.9 % (36-47) 01/15/24 01:00 MCV 96.2 fl (85-98) 01/15/24 01:00 MCH 32.3 pg (27-33) 01/15/24 01:00 MCHC 33.6 g/dL (30-55) 01/15/24 01:00 RDW 13.8 % (12.1-15.1) 01/15/24 01:00 Plt Count 302 10^3/cmm (157-399) 01/15/24 01:00 MPV 11.3 fL (7.4-10.4) H 01/15/24 01:00 Neut % (Auto) 77.3 % 01/15/24 01:00 Lymph % (Auto) 16.1 % 01/15/24 01:00 Iron % (Auto) 4.5 % 01/15/24 01:00 Eos % (Auto) 1.1 % 01/15/24 01:00 Baso % (Auto) 0.7 % 01/15/24 01:00 Neut # (Auto) 11.50 10^3/uL (1.8-7.7) H 01/15/24 01:00 Lymph # (Auto) 2.4 10^3/uL (0.8-4.8) 01/15/24 01:00 Iron # (Auto) 0.7 10^3/uL (0.2-0.9) 01/15/24 01:00 Eos # (Auto) 0.2 10^3/uL (0.0-0.8) 01/15/24 01:00 Baso # (Auto) 0.1 10^3/uL (0.0-0.1) 01/15/24 01:00 Nucleated RBC % (auto) 0 % 01/15/24 01:00 Nucleated RBCs # 0.0 /100WBC 01/15/24 01:00 PT 12.80 SECONDS (12.1-14.9) 01/15/24 01:00 INR 0.94 (0.8-1.2) 01/15/24 01:00 Sodium 142 mmol/L (136-145) 01/15/24 01:00 Potassium 4.1 mmol/L (3.5-5.1) 01/15/24 01:00 Chloride 107 mmol/L (98-107) 01/15/24 01:00 Carbon Dioxide 24 mmol/L (22-29) 01/15/24 01:00 Anion Gap 15.1 (5-19) 01/15/24 01:00 BUN 5 mg/dL (6-20) L 01/15/24 01:00 Creatinine 0.8 mg/dL (0.5-0.9) 01/15/24 01:00 GFR Calculation 76.2 mL/min (90-130) L 01/15/24 01:00 Glucose 116 mg/dL (65-115) H 01/15/24 01:00 Calculated Osmolality 292 mOsm/kg (285-295) 01/15/24 01:00 Calcium 8.5 mg/dL (8.5-10.5) 01/15/24 01:00 Total Bilirubin 0.4 mg/dL (0.15-1.2) 01/15/24 01:00 AST 20 U/L (0-32) 01/15/24 01:00 ALT 19 U/L (0-33) 01/15/24 01:00 Alkaline Phosphatase 109 U/L (35-105) H 01/15/24 01:00 Troponin T Baseline 18 ng/L (0-10) H 01/15/24 01:00 Troponin T 120 Minute 17.46 ng/L (0-10) H 01/15/24 02:53 Delta Troponin T -0.54 ABS# (0-10) L 01/15/24 02:53 NT-Pro-B Natriuret Pep 3494 pg/mL (0-125) H 01/15/24 01:00 Total Protein 6.5 g/dL (6.6-8.7) L 01/15/24 01:00 Albumin 4.0 g/dL (3.5-5.2) 01/15/24 01:00 Globulin 2.5 g/dL (1.3-4.6) 01/15/24 01:00 Lipase 20 U/L (13-60) 01/15/24 01:00 All radiology interpretation(s) finalized by discharge EKG Data EKG 1: I personally reviewed and interpreted this EKG as follows: EKG interpretation date: 01/15/24 EKG interpretation time: 00:59 Interpretation: paced hr [address] elevation qrs 145 qtc 475 Discharge Plan Discharge Patient Disposition: Home Clinical Impression: Pneumonitis, Chest pain Condition: Stable Prescriptions: New cephalexin 500 mg capsule 500 mg PO TID 7 Days Qty: 21 0RF ondansetron 4 mg tablet,disintegrating 4 mg PO Q6H PRN (Reason: nausea and vomiting) Qty: 14 0RF No Action potassium chloride 10 mEq capsule, extended release 10 meq PO BID AZO Complete Feminine Balance 5 billion cell capsule PO Jardiance 10 mg tablet 10 mg PO QAM Patient Comments: ANT Hardy (DME) nebulizer and kit (mask/tubing etc) See Rx Instructions .Route .MEDSUPPLY Qty: 1 0RF Rx Instructions: As directed nitroglycerin 0.4 mg tablet, sublingual 0.4 mg SUBLINGUAL Q5M PRN (Reason: chest pain) Qty: 30 2RF albuterol sulfate 2.5 mg /3 mL (0.083 %) solution for nebulization 2.5 mg INHALATION Q4H PRN (Reason: bronchospasm) Qty: 180 5RF chlorhexidine gluconate [Peridex] 0.12 % mouthwash 15 ml BUCCAL BID PRN (Reason: mouth infection) Qty: 473 5RF albuterol sulfate [Ventolin HFA] 90 mcg/actuation HFA aerosol inhaler 2 puff inhalation QID PRN (Reason: shortness of breath or wheezing) Qty: 8.5 1RF aripiprazole [Abilify] 10 mg tablet 10 mg PO DAILY Qty: 30 2RF duloxetine [Cymbalta] 60 mg capsule,delayed release(DR/EC) 60 mg PO BID Qty: 60 2RF ergocalciferol (vitamin D2) 1,250 mcg (50,000 unit) capsule 50,000 unit PO .monthly Qty: 1 2RF fluticasone furoate-vilanterol [Breo Ellipta] 100-25 mcg/dose blister with device 1 inh inhalation Q24H Qty: 60 2RF furosemide 20 mg tablet 20 mg PO DAILY Qty: 30 2RF ketoconazole 2 % shampoo 1 applic topical .weekly Qty: 120 2RF zonisamide 100 mg capsule 100 mg PO BID Qty: 60 2RF aspirin [Adult Low Dose Aspirin] 81 mg tablet,delayed release (DR/EC) 81 mg PO DAILY Eliquis 5 mg tablet 5 mg PO BID amiodarone 200 mg tablet 200 mg PO DAILY Qty: 10 0RF Rx Instructions: refill until see cardiology apt. carvedilol [Coreg] 3.125 mg tablet 3.125 mg PO BID Qty: 20 0RF Rx Instructions: refill until see cardiology (DME) [place]izers [facility] [place] .ROUTE .MEDSUPPLY Qty: 1 0RF Rx Instructions: As directed hydrocortisone [Anusol-HC] 2.5 % cream with perineal applicator 1 applic [place] DAILY PRN (Reason: hemorrhoids) Qty: 30 1RF mupirocin 2 % ointment 1 applic TOPICAL TID PRN (Reason: rash) Discharge Orders: Discharge ED (Routine); Ordered 01/15/24 Ordered By: Suni Anaya Referrals: Julito Felton FNP-C [Primary Care Provider] - 4-7 days Discharge Diet: Advance as tolerated Discharge Activity: Resume usual activity Patient Instructions: Chest Pain (ED), Acute Bronchitis (ED) Coding Level of Care Code ED Housekeeping Aid for Zach Alfaro
[2024-01-15 01:09] LABS: Basophils # 0.1 10^3/uL (0.0-0.1); Basophils % 0.7 %; Eosinophils # 0.2 10^3/uL (0.0-0.8); Eosinophils % 1.1 %; Hematocrit 45.9 % (36-47); Lymphocytes # 2.4 10^3/uL (0.8-4.8); Lymphocytes % 16.1 %; Mean Corpuscular HGB Conc 33.6 g/dL (30-55); Mean Corpuscular Hemoglobin 32.3 pg (27-33); Mean Corpuscular Volume 96.2 fl (85-98); Mean Platelet Volume 11.3 fL (7.4-10.4); Monocytes # 0.7 10^3/uL (0.2-0.9); Monocytes % 4.5 %; Neutrophils % 77.3 %; Nucleated Red Blood Cells % 0 %; Platelet Count 302 10^3/cmm (157-399); Red Blood Count 4.77 10^6/uL (3.85-5.65); Red Cell Distribution Width 13.8 % (12.1-15.1); White Blood Count 14.87 10^3/uL (3.29-11.43)
--- NOTE | 2024-01-15 01:11 | CTR_ITS ---
PROCEDURE INFORMATION: Exam: CTA Chest With Contrast Exam date and time: 01/15/2024 1:24 AM Age: 48 years old Clinical indication: Angina and shortness of breath; Prior surgery; Surgery date: 6+ months; Surgery type: Pacemaker; Additional info: Cp/sob TECHNIQUE: Imaging protocol: Computed tomographic angiography of the chest with contrast. Exam focused on the arteries. 3D rendering (Not supervised by radiologist): MIP and/or 3D reconstructed images were created by the technologist. Radiation optimization: All CT scans at this facility use at least one of these dose optimization techniques: automated exposure control; mA and/or kV adjustment per patient size (includes targeted exams where dose is matched to clinical indication); or iterative reconstruction. Contrast material: OMNI 350; Contrast volume: 100 ml; Contrast route: INTRAVENOUS (IV); COMPARISON: CR (CHEST, ) 01/15/2024 1:01 AM RADIATION DOSE METRICS: Total DLP (mGy-cm): 508.5 FINDINGS: Pulmonary arteries: Likely subtle motion or other subtle artifact in the RML on series 7, image 256. No sizable, central or occlusive PE. Aorta: Advanced diffuse vascular calcification noted. No aortic aneurysm. No aortic dissection. Lungs: Mild COPD. Mild areas of bilateral mid to lower lung atelectasis or scarring. Mild areas of reticulonodular opacity or pneumonitis. Pleural spaces: No pneumothorax. No pleural effusion noted. Heart: The heart is large. No pericardial effusion. Left-sided pacing device appears intact. Heart RV/LV ratio: The RV/LV ratio is 0.6. Lymph nodes: Mild mediastinal and hilar lymphadenopathy. Gallbladder and bile ducts: Absent gallbladder. Bones/joints: Skeletal structures are age appropriate. No acute fracture is seen. Soft tissues: Unremarkable. CT/CT angio chest PE protcl [id number] IMPRESSION: 1. No definite acute or occlusive PE. Minimal RML probable pulmonary arterial artifact attributable to motion versus less likely subtle PE as described. Consider short-term follow-up if symptoms persist. 2. Mild areas of bilateral mid to lower lung reticulonodular opacity with pneumonitis likely. Likely reactive mild lymphadenopathy. Recommend three-month follow-up. 3. Large heart and other chronic findings.
[2024-01-15 01:20] LABS: INR 0.94 (0.8-1.2)
[2024-01-15] MEDS: iohexol 350 mg/mL 500 mL Btl (per mL) IV (01:25)
[2024-01-15 01:29] LABS: Troponin(5th) Baseline 18 ng/L (0-10)
[2024-01-15 01:33] LABS: Alanine Aminotransferase 19 U/L (0-33); Alkaline Phosphatase 109 U/L (35-105); Blood Urea Nitrogen 5 mg/dL (6-20); Calcium 8.5 mg/dL (8.5-10.5); Carbon Dioxide 24 mmol/L (22-29); Chloride 107 mmol/L (98-107); Creatinine Clr Calc Pharmacy 103.8703; Globulin 2.5 g/dL (1.3-4.6); Glomerular Filtration Rate 76.2 mL/min (90-130); Glucose 116 mg/dL (65-115); Lipase 20 U/L (13-60); Osmolality Calculated 292 mOsm/kg (285-295); Sodium 142 mmol/L (136-145); Total Bilirubin 0.4 mg/dL (0.15-1.2); Total Protein 6.5 g/dL (6.6-8.7)
[2024-01-15 01:35] LABS: Anion Gap 15.1 (5-19); Aspartate Amino Transferase 20 U/L (0-32); Potassium 4.1 mmol/L (3.5-5.1)
[2024-01-15 01:36] LABS: NT Pro B Type Natriuretic Pept 3494 pg/mL (0-125)
[2024-01-15] MEDS: aspirin 81 mg Chew Tablet 324 MG PO (02:05)
[2024-01-15] MEDS: morphine 4 mg/mL SDV 1 mL IVP (02:10)
[2024-01-15] MEDS: ondansetron 2 mg/ML SDV 2 mL 4 MG IVP ×2 (02:10→02:47)
[2024-01-15 03:18] LABS: Troponin 5 2HR 17.46 ng/L (0-10)
[2024-01-15 03:19] LABS: Troponin 5 2HR Delta -0.54 ABS# (0-10)
[2024-01-15] MEDS: cephALEXin 500 mg Capsule PO (03:53)
[2024-01-15] MEDS: dexamethasone 10 mg/mL INJ IVP (03:54)
== END 2024-01-15 04:08 | disposition home or self-care (01) ==
PROVIDERS: Emergency Provider Emergency Medicine; PCP Nurse Practitioner
DX: J98.4 Other disorders of lung (principal); R07.9 Chest pain, unspecified; Z79.82 Long term (current) use of aspirin; Z79.01 Long term (current) use of anticoagulants; F17.210 Nicotine dependence, cigarettes, uncomplicated; Z95.810 Presence of automatic (implantable) cardiac defibrillator; J44.9 Chronic obstructive pulmonary disease, unspecified; I50.9 Heart failure, unspecified
CPT/HCPCS: 71045; 71275; 80053; 83690; 83880; 84484; 85025; 85610; 93005; 96374; 96375; 96376; 99285; J1100; J2270; J2405; Q9967

== ENCOUNTER → 2024-02-20 14:32 | Outpatient (BNVA) | payer MEDICARE, MEDICAID, SELFPAY | PROVIDERS: PCP Nurse Practitioner; Visit Provider Nurse Practitioner | DX: F41.8 Other specified anxiety disorders (principal); E55.9 Vitamin D deficiency, unspecified | CPT/HCPCS: 80053; 82306 ==

== ENCOUNTER 2024-04-09 06:48 | Day surgery (SDC) | payer MEDICARE, SELFPAY ==
--- NOTE | 2024-04-09 05:57 | W.PM.OPSFHP ---
Same Day Surgery H&P Indication for Procedure/HPI DATE OF PROCEDURE: April 09, 2024 CHIEF COMPLAINT/INDICATIONFOR SURGICAL PROCEDURE: need for screening colonoscopy PREOP DIAGNOSIS: need for screening colonoscopy PLANNED PROCEDURE: Operation Date: 04/09/24 07:40 Proposed Procedures p Colonoscopy 63092, G0121, Z12.11(Not Applicable) - Victor Manuel Leger MD Medications/Allergies* Home Medications Medication Instructions Recorded Confirmed Type potassium chloride 10 mEq 10 meq PO BID 11/12/19 04/06/24 History capsule,extended release empagliflozin 10 mg tablet 10 mg PO QAM 08/07/22 04/06/24 History (Jardiance) apixaban 5 mg tablet (Eliquis) 5 mg PO BID 09/25/23 04/06/24 History aspirin 81 mg tablet,delayed 81 mg PO DAILY 09/25/23 04/06/24 History release (Adult Low Dose Aspirin) atorvastatin 20 mg tablet 20 mg PO BID 01/21/24 04/06/24 History sacubitril 24 mg-valsartan 26 mg 1 tab PO BID 01/21/24 04/06/24 History tablet (Entresto) Allergies/Adverse Reactions Allergy/AdvReac Type Severity Reaction Status Date / Time corn syrup Allergy Mild swelling Verified 03/26/24 09:39 lisinopril Allergy ADR/ALGY-Pa Verified 03/26/24 09:39 lpitations Pertinent History/Comorbid Conditions* Medical History (Updated 01/23/24 @ 00:01 by CLIFFORD Murphy) Implantable cardioverter-defibrillator (ICD) in situ Anxiety with depression External hemorrhoid Cigarette smoker Diverticula, colon Chronic intermittent steroid use Chronic obstructive pulmonary disease, unspecified CHF (congestive heart failure) Gastric reflux Gingivitis Vitamin D deficiency History of pacemaker Surgical History (Updated 03/13/22 @ 15:21 by CARLOS Castellano) History of hysterectomy 06/06/2021 History of implantable cardiac defibrillator (ICD) History of cholecystectomy History of tubal ligation Family History (Updated 03/10/21 @ 10:16 by Whitney Obando LPN) Clotting disorder Daughter Antiphospholipid syndrome Hyperlipidemia Father Cancer Mother colon Grandfather Paternal - pancreatic Grandmother Maternal - colon Grandfather Maternal - prostate Hypertension Father Thyroid disease Mother Grandmother Maternal and Paternal Stroke Grandfather Paternal Denies family history of Diabetes CAD (coronary artery disease) Chronic kidney disease (CKD) Bleeding disorder Social History Smoking and tobacco/nicotine status: current every day tobacco/nicotine user cigarettes Second hand smoke exposure: Yes Alcohol intake: never Substance/Drug Use: never Caregiver/support person: No Lives independently: Yes Household members: spouse and children Housing: House Marital status: Number of children: 2 service: No Current occupational status: unemployed Current occupational exposures/hazards: No Pets and animals: Yes Do you think of yourself as: Straight/Heterosexual Current gender identity: Female Pertinent Exam Findings alert, oriented x 3 and clear to auscultation bilaterally Recommendations Surgery/Procedure today Coding Level of Care Code Acute Code for Chg Fwd
--- NOTE | 2024-04-09 06:57 | P.ANESASSM_ITS ---
Pre-Anesthetic Assessment Height/Weight: Height 1.73 m Preop Diagnosis: need for screening colonoscopy Operation Date: 04/09/24 07:40 Proposed Procedures p Colonoscopy 91878, G0121, Z12.11(Not Applicable) - Victor Manuel Leger MD Medications/Allergies Home Medications Medication Instructions Recorded Confirmed Last Taken Type potassium chloride 10 mEq 10 meq PO BID 11/12/19 04/09/24 04/08/24 History capsule,extended release nebulizers #1 ea 07/03/21 04/06/24 Unknown Rx nebulizer and kit (mask/tubing etc) #1 ea 12/04/21 04/06/24 Unknown Rx nitroglycerin 0.4 mg sublingual 0.4 mg sublingual Q5M PRN chest 04/11/22 04/09/24 Unknown Rx tablet pain #30 tabs empagliflozin 10 mg tablet 10 mg PO QAM 08/07/22 04/09/24 04/08/24 History (Jardiance) apixaban 5 mg tablet (Eliquis) 5 mg PO BID 09/25/23 04/06/24 04/05/24 History aspirin 81 mg tablet,delayed 81 mg PO DAILY 09/25/23 04/09/24 04/04/24 History release (Adult Low Dose Aspirin) amiodarone 200 mg tablet 200 mg PO DAILY #10 tabs 01/06/24 04/09/24 04/08/24 Rx carvedilol 3.125 mg tablet (Coreg) 3.125 mg PO BID #20 tabs 01/06/24 04/09/24 04/09/24 Rx atorvastatin 20 mg tablet 20 mg PO BID 01/21/24 04/09/24 04/07/24 History chlorhexidine gluconate 0.12 % 15 ml buccal BID PRN mouth 01/21/24 04/09/24 04/05/24 Rx mouthwash (Peridex) infection #473 mL sacubitril 24 mg-valsartan 26 mg 1 tab PO BID 01/21/24 04/09/24 04/08/24 History tablet (Entresto) albuterol sulfate 2.5 mg/3 mL 2.5 mg (3 mL) inhalation Q4H PRN 02/20/24 04/09/24 04/08/24 Rx (0.083 %) solution for nebulization bronchospasm #180 mL ergocalciferol (vitamin D2) 1,250 50,000 unit PO .monthly #1 cap 02/20/24 04/09/24 1 Week Ago Rx mcg (50,000 unit) capsule ~03/30/24 fluticasone furoate 100 1 inh inhalation Q24H #60 ea 02/20/24 04/09/24 04/08/24 Rx mcg-vilanterol 25 mcg/dose inhalation powder (Breo Ellipta) furosemide 20 mg tablet 20 mg PO DAILY #30 tabs 02/20/24 04/09/24 04/08/24 Rx ketoconazole 2 % shampoo 1 applic topical .weekly #120 mL 02/20/24 04/09/24 04/08/24 Rx levomilnacipran 80 mg capsule,24 80 mg PO DAILY #30 caps 02/20/24 04/09/24 04/08/24 Rx hr,extended release (Fetzima) zonisamide 100 mg capsule 100 mg PO BID #60 caps 02/20/24 04/09/24 04/08/24 Rx albuterol sulfate 90 mcg/actuation 2 puff inhalation QID PRN 03/08/24 04/09/24 04/08/24 Rx aerosol inhaler (Ventolin HFA) shortness of breath or wheezing #8.5 grams Allergies Allergy/AdvReac Type Severity Reaction Status Date / Time corn syrup Allergy Mild swelling Verified 03/26/24 09:39 lisinopril Allergy ADR/ALGY-Pa Verified 03/26/24 09:39 lpitations [facility] Anesthesia Medical History Implantable cardioverter-defibrillator (ICD) in situ Anxiety with depression External hemorrhoid Cigarette smoker Diverticula, colon Chronic intermittent steroid use Chronic obstructive pulmonary disease, unspecified CHF (congestive heart failure) Gastric reflux Gingivitis Vitamin D deficiency History of pacemaker Surgical History History of hysterectomy 06/06/2021 History of implantable cardiac defibrillator (ICD) History of cholecystectomy History of tubal ligation Family History Mother Cancer colon Thyroid disease Grandfather Cancer Paternal - pancreatic Grandmother Cancer Maternal - colon Thyroid disease Maternal and Paternal Grandfather Cancer Maternal - prostate Stroke Paternal Daughter Clotting disorder Antiphospholipid syndrome Father Hyperlipidemia Hypertension Denies family history of Diabetes CAD (coronary artery disease) Chronic kidney disease (CKD) Bleeding disorder Social History Smoking and tobacco/nicotine status: current every day tobacco/nicotine user cigarettes Second hand smoke exposure: Yes Alcohol intake: never Substance/Drug Use: never Caregiver/support person: No Lives independently: Yes Household members: spouse and children Housing: House Marital status: Number of children: 2 service: No Current occupational status: unemployed Current occupational exposures/hazards: No Pets and animals: Yes Do you think of yourself as: Straight/Heterosexual Current gender identity: Female Data Anesthesia Cardiac Studies: No Data to Display
[2024-04-09 07:02] VITALS: BP 125/78; PULSE 70; RESP 16; TEMP 36.2; O2SAT 99; BMI 31.6
[2024-04-09] MEDS: sodium chloride 0.9% 1,000 ML 30 ML IV (07:09)
--- NOTE | 2024-04-09 07:11 | ANES.PREANE2 ---
Pre-Anesthetic Assessment Height/Weight: Height 1.73 m Weight 94.347 kg Temp Pulse Resp BP Pulse Ox O2 Del Method 97.2 F L 70 16 125/78 99 Room Air 04/09/24 07:02 04/09/24 07:02 04/09/24 07:02 04/09/24 07:02 04/09/24 07:02 04/09/24 07:02 Preop Diagnosis: need for screening colonoscopy Operation Date: 04/09/24 07:40 Proposed Procedures p Colonoscopy 17337, G0121, Z12.11(Not Applicable) - Victor Manuel Leger MD Was Beta Scottie taken within 24 hours: Yes Was Clonidine taken within 24 hours: N/A Last intake: Intake Last Liquid Date 04/08/24 Last Liquid Time 22:00 Last Solid Date 04/07/24 Last Solid Time 18:00 Social Tobacco 1/2 pack(s) per day Exam alert, oriented x 3, clear to auscultation bilaterally and regular rate & rhythm Airway Submandibular: within normal limits Cervical ROM: within normal limits Mallampati: Class II Dentition: chipped and loose Pulmonary Chronic Obstructive Pulmonary Disease and Shortness of Breath CV/HEM Congestive Heart Failure and Hypertension None reported Hepatic None reported GI None reported Metabolic None reported Musc/skel None reported Neuropsych None reported Anesthetic Plan ASA status: 2 Anesthesia: MAC Risk of > 500 ml blood loss (7ml/kg in children): No Medications/Allergies Home Medications Medication Instructions Recorded Confirmed Last Taken Type potassium chloride 10 mEq 10 meq PO BID 11/12/19 04/09/24 04/08/24 History capsule,extended release nebulizers #1 ea 07/03/21 04/06/24 Unknown Rx nebulizer and kit (mask/tubing etc) #1 ea 12/04/21 04/06/24 Unknown Rx nitroglycerin 0.4 mg sublingual 0.4 mg sublingual Q5M PRN chest 04/11/22 04/09/24 Unknown Rx tablet pain #30 tabs empagliflozin 10 mg tablet 10 mg PO QAM 08/07/22 04/09/24 04/08/24 History (Jardiance) apixaban 5 mg tablet (Eliquis) 5 mg PO BID 09/25/23 04/06/24 04/05/24 History aspirin 81 mg tablet,delayed 81 mg PO DAILY 09/25/23 04/09/24 04/04/24 History release (Adult Low Dose Aspirin) amiodarone 200 mg tablet 200 mg PO DAILY #10 tabs 01/06/24 04/09/24 04/08/24 Rx carvedilol 3.125 mg tablet (Coreg) 3.125 mg PO BID #20 tabs 01/06/24 04/09/24 04/09/24 Rx atorvastatin 20 mg tablet 20 mg PO BID 01/21/24 04/09/24 04/07/24 History chlorhexidine gluconate 0.12 % 15 ml buccal BID PRN mouth 01/21/24 04/09/24 04/05/24 Rx mouthwash (Peridex) infection #473 mL sacubitril 24 mg-valsartan 26 mg 1 tab PO BID 01/21/24 04/09/24 04/08/24 History tablet (Entresto) albuterol sulfate 2.5 mg/3 mL 2.5 mg (3 mL) inhalation Q4H PRN 02/20/24 04/09/24 04/08/24 Rx (0.083 %) solution for nebulization bronchospasm #180 mL ergocalciferol (vitamin D2) 1,250 50,000 unit PO .monthly #1 cap 02/20/24 04/09/24 1 Week Ago Rx mcg (50,000 unit) capsule ~03/30/24 fluticasone furoate 100 1 inh inhalation Q24H #60 ea 02/20/24 04/09/24 04/08/24 Rx mcg-vilanterol 25 mcg/dose inhalation powder (Breo Ellipta) furosemide 20 mg tablet 20 mg PO DAILY #30 tabs 02/20/24 04/09/24 04/08/24 Rx ketoconazole 2 % shampoo 1 applic topical .weekly #120 mL 02/20/24 04/09/24 04/08/24 Rx levomilnacipran 80 mg capsule,24 80 mg PO DAILY #30 caps 02/20/24 04/09/24 04/08/24 Rx hr,extended release (Fetzima) zonisamide 100 mg capsule 100 mg PO BID #60 caps 02/20/24 04/09/24 04/08/24 Rx albuterol sulfate 90 mcg/actuation 2 puff inhalation QID PRN 03/08/24 04/09/24 04/08/24 Rx aerosol inhaler (Ventolin HFA) shortness of breath or wheezing #8.5 grams Allergies Allergy/AdvReac Type Severity Reaction Status Date / Time corn syrup Allergy Mild swelling Verified 03/26/24 09:39 lisinopril Allergy ADR/ALGY-Pa Verified 03/26/24 09:39 lpitations Current Medications Generic Name Dose Route Start Last Admin Trade Name Freq PRN Reason Stop Dose Admin Sodium Chloride 1,000 mls @ 30 mls/hr 04/09/24 07:00 04/09/24 07:09 Sodium Chloride 0.9% IV 30 mls/hr .Q24H VEDA Administration PFSH Anesthesia Medical History Implantable cardioverter-defibrillator (ICD) in situ Anxiety with depression External hemorrhoid Cigarette smoker Diverticula, colon Chronic intermittent steroid use Chronic obstructive pulmonary disease, unspecified CHF (congestive heart failure) Gastric reflux Gingivitis Vitamin D deficiency History of pacemaker Surgical History History of hysterectomy 06/06/2021 History of implantable cardiac defibrillator (ICD) History of cholecystectomy History of tubal ligation Family History Mother Cancer colon Thyroid disease Grandfather Cancer Paternal - pancreatic Grandmother Cancer Maternal - colon Thyroid disease Maternal and Paternal Grandfather Cancer Maternal - prostate Stroke Paternal Daughter Clotting disorder Antiphospholipid syndrome Father Hyperlipidemia Hypertension Denies family history of Diabetes CAD (coronary artery disease) Chronic kidney disease (CKD) Bleeding disorder Social History Smoking and tobacco/nicotine status: current every day tobacco/nicotine user cigarettes Second hand smoke exposure: Yes Alcohol intake: never Substance/Drug Use: never Caregiver/support person: No Lives independently: Yes Household members: spouse and children Housing: House Marital status: Number of children: 2 service: No Current occupational status: unemployed Current occupational exposures/hazards: No Pets and animals: Yes Do you think of yourself as: Straight/Heterosexual Current gender identity: Female Data Anesthesia Cardiac Studies: No Data to Display
[2024-04-09 08:33] VITALS: BP 108/73; PULSE 70; RESP 18; TEMP 36.2; O2SAT 97
[2024-04-09 08:45] VITALS: BP 120/79; PULSE 70; RESP 18; O2SAT 97
[2024-04-09 09:07] VITALS: BP 118/75; PULSE 70; RESP 18; O2SAT 98
--- NOTE | 2024-04-09 09:25 | ANE.PACU2 ---
Inpatient post-anesthesia follow up: Airway intact: Yes Vital signs: Temperature 97.2 F Pulse Rate 70 Respiratory Rate 18 Blood Pressure 118/75 Pulse Oximetry 98 Oxygen Delivery Me thod Room Air Oxygen Flow Rate Fraction of Inspir ed Oxygen Hydration adequate: Yes Nausea and vomiting: No Pain level: 1 Mental status: Baseline
== END 2024-04-09 09:27 | disposition home or self-care (01) ==
PROVIDERS: PCP Nurse Practitioner; Visit Provider Surgery
PROC: 0DJD8ZZ Inspection of Lower Intestinal Tract, Via Natural or Artificial Opening Endoscopic (ICD-10-PCS; CPT 45378; principal; 2024-04-09 07:40)
DX: Z12.11 Encounter for screening for malignant neoplasm of colon (principal); D12.2 Benign neoplasm of ascending colon; D12.3 Benign neoplasm of transverse colon; D12.5 Benign neoplasm of sigmoid colon; D12.8 Benign neoplasm of rectum; F17.210 Nicotine dependence, cigarettes, uncomplicated; Z95.0 Presence of cardiac pacemaker; Z79.82 Long term (current) use of aspirin; J44.9 Chronic obstructive pulmonary disease, unspecified; I11.0 Hypertensive heart disease with heart failure; I50.9 Heart failure, unspecified
CPT/HCPCS: 45380; 45385; 88305; J2371; J2704; J7030

== ENCOUNTER → 2024-05-01 08:37 | Outpatient (BNVA) | payer MEDICARE, SELFPAY | PROVIDERS: PCP Nurse Practitioner; Visit Provider Surgery | DX: Z09 Encounter for follow-up examination after completed treatment for conditions other than malignant neoplasm (principal) | CPT/HCPCS: 99213 ==

== ENCOUNTER → 2024-07-29 08:47 | Outpatient (BNVA) | payer MEDICARE, SELFPAY | PROVIDERS: PCP Nurse Practitioner; Visit Provider Nurse Practitioner | DX: E55.9 Vitamin D deficiency, unspecified (principal); I25.2 Old myocardial infarction; F41.8 Other specified anxiety disorders | CPT/HCPCS: 80053; 80061; 82306; 82607; 84443 ==

== ENCOUNTER → 2024-11-03 09:00 | Outpatient (BNVA) | payer MEDICARE, MEDICAID, SELFPAY | PROVIDERS: PCP Nurse Practitioner; Visit Provider Nurse Practitioner | DX: E87.6 Hypokalemia (principal) | CPT/HCPCS: 80048 ==

== ENCOUNTER 2024-11-10 10:24 | Outpatient (CLI) | payer MEDICARE, MEDICAID, SELFPAY ==
--- NOTE | 2024-11-10 10:20 | MM_ITS ---
WS: [id number] BILATERAL 3D TOMOSYNTHESIS DIGITAL SCREENING MAMMOGRAPHY WITH CAD CLINICAL INFORMATION: Z12.31 - Encounter for screening mammogram for malignant ... HISTORY: Screening mammogram. No current complaints. COMPARISON: New baseline TECHNIQUE: Bilateral CC and MLO views. FINDINGS: Cardiac pacer The breasts are composed of heterogeneous fibroglandular density tissue, which can limit the detection of small underlying mass lesions. No suspicious mass, asymmetry, calcifications, or architectural distortion. No evidence of malignancy. A few incidental punctate calcifications. MM/MM [facility] tomosynthesis [id number] IMPRESSION: DENSITY: The breasts are heterogeneously dense, which may obscure small masses. BI-RADS: 2 - Benign FOLLOW UP: 1 Year Follow-up Recommend return to annual screening mammography.
== END 2024-11-10 10:25 | disposition home or self-care (01) ==
PROVIDERS: PCP Nurse Practitioner; Visit Provider Nurse Practitioner
DX: Z12.31 Encounter for screening mammogram for malignant neoplasm of breast (principal); R92.333 Mammographic heterogeneous density, bilateral breasts; R92.1 Mammographic calcification found on diagnostic imaging of breast; Z96.89 Presence of other specified functional implants
CPT/HCPCS: 77063; 77067

== ENCOUNTER → 2025-04-21 12:15 | Outpatient (BNVA) | payer MEDICARE, MEDICAID, SELFPAY | PROVIDERS: PCP Nurse Practitioner; Visit Provider Nurse Practitioner | DX: F41.8 Other specified anxiety disorders (principal) | CPT/HCPCS: 80053; 84443 ==

== ENCOUNTER → 2025-05-04 08:36 | Outpatient (BNVA) | payer MEDICARE, MEDICAID, SELFPAY | PROVIDERS: PCP Nurse Practitioner; Visit Provider Nurse Practitioner | DX: E87.6 Hypokalemia (principal) | CPT/HCPCS: 80048 ==

== ENCOUNTER → 2025-06-04 14:23 | Outpatient (BNVA) | payer MEDICARE, MEDICAID, SELFPAY | PROVIDERS: PCP Nurse Practitioner; Visit Provider Obstetrics & Gynecology | DX: Z01.419 Encounter for gynecological examination (general) (routine) without abnormal findings (principal) | CPT/HCPCS: 87624 ==

== ENCOUNTER → 2025-07-15 09:45 | Outpatient (BNVA) | payer MEDICARE, MEDICAID, SELFPAY | PROVIDERS: PCP Nurse Practitioner; Visit Provider Nurse Practitioner Family | DX: L30.4 Erythema intertrigo (principal); L57.3 Poikiloderma of Civatte; L57.8 Other skin changes due to chronic exposure to nonionizing radiation; X32.XXXA Exposure to sunlight, initial encounter; L81.4 Other melanin hyperpigmentation; D18.01 Hemangioma of skin and subcutaneous tissue; D48.5 Neoplasm of uncertain behavior of skin | CPT/HCPCS: 11102; 99204 ==

== ENCOUNTER 2025-07-16 11:04 | Outpatient (CLI) | payer MEDICARE, MEDICAID, SELFPAY ==
--- NOTE | 2025-07-16 11:09 | XR_ITS ---
WS: [id number] Exam: XR hip RT 2-3V wo/w pel* [id number] Date/Time of Exam: 07/16/2025 11:09 AM Reason For Exam: M25.551 - Pain in right hip Comparison 01/16/2023. No fracture. The joint compartments are relatively well-maintained. Minimal degenerative change of the acetabular rim. Normal soft tissues. XR/XR hip RT 2-3V wo/w pel* [id number] IMPRESSION: 1. Minimal degenerative change of the acetabular rim otherwise negative RIGHT h ip.
== END 2025-07-16 11:05 | disposition home or self-care (01) ==
PROVIDERS: PCP Nurse Practitioner; Visit Provider Clinical Nurse Specialist Adult Health
DX: M25.551 Pain in right hip (principal); M24.151 Other articular cartilage disorders, right hip
CPT/HCPCS: 73502

== ENCOUNTER 2025-08-25 10:42 | Inpatient (IN) | payer MEDICARE, MEDICAID, SELFPAY ==
[2025-08-25] VITALS (12 sets, daily range): BP systolic 103–115; BP diastolic 67–73; PULSE 67–73; RESP 14–17; TEMP 36.6–37.1; O2SAT 91–100; BMI 33.7; BMI 33.6
--- NOTE | 2025-08-25 10:46 | ECG_ITS ---
[facility]: 2025-08[facility]25 Pat Name: Martha Mccoy Department: Room: Gender: Female Security Engineer: : 1975 Requested By: Victor Manuel Cai Order Number: [id number] Shwetha MD: JIN MARC Measurements Intervals Beaver Rate: 70 P: -60 IN: 262 QRS: 33 QRSD: 150 T: 90 QT: 470 QTc: 508 Interpretive Statements ELECTRONIC ATRIAL PACEMAKER LEFT BUNDLE BRANCH BLOCK [120+ ms QRS DURATION, 80+ ms Q/S IN V1/V2, 85+ ms R IN I/aVL/V5/V6] Compared to ECG 01/15/2024 02:40:37 Left bundle-branch block now present Intraventricular conduction delay no longer present Myocardial infarct finding no longer present Electronically Signed On 08-25-2025 20:15:15 BRANCH ACCOUNT EXECUTIVE by JIN MARC [email or web address] Dein [email or web address] [id number]
--- OUTSIDE RECORDS SUMMARY | 2025-08-25 10:46 | XMS_ITS | Encounter Summary ---
Author Organization [facility] Address [address] [place] [address] Care Team Providers Care Supervisor Rolling Room Name Role Phone Unavailable Primary Care Provider Unavailabl e Encounter Details Date Type Department Care Team (Late st Contact Info) Description 01/10/2024 Telephone [facility] [address] [place] [phone] Victor Manuel Garay MD [address] [place] [phone] Social History Tobacco Use Types Packs/Day Years Used Date Smoking Tobacco: Never Assessed Comments Unknown Sex and Gender Information Value Date Recorded Sex Assigned at Not on file Legal Sex Female 9:58 PM CDT Gender Identity Not on file Sexual Orientation Not on file documented as of this encounter Miscellaneous Notes * Telephone Encounter - Autumn Birmingham - 01/10/2024 9:11 AM CDT Returned call and jo'd. Advised to make contact with original prescribing DR and advise of the upcoming appt. Ask if they will honor refills util that time. Pt verbalized understanding. * Telephone Encounter - Lyndsay Quigley - 01/10/2024 8:44 AM CDT Provider: Dr Garay Person Calling: Martha Phone #: [phone] or cell # [phone] Relationship to patient: self Pt was scheduled for a Consult yesterday, thought it was today. She called for directions to the clinic. She is new to [facility], her Stem Assembler in [facility] will not give her meds and she is out of Eliquis and she has only 2 days left of amiodarone and carvedilol. -Lyndsay Quigley documented in this encounter Plan of Treatment Upcoming Encounters Date Type Department Care Team (Late st Contact Info) Description 12/06/2025 2:40 PM CDT Office Visit [facility] [address] [place] [phone] Ronni Garcia, FOUNDRY PATTERNMAKER [address] [place] [phone] documented as of this encounter Visit Diagnoses Not on filedocumented in this encounter
--- OUTSIDE RECORDS SUMMARY | 2025-08-25 10:46 | XMS_ITS | Encounter Summary ---
Author Organization [facility] Address [address] [place] [address] Care Team Providers Care Retail Merchandising Specialist Name Role Phone Unavailable Primary Care Provider Unavailabl e Encounter Details Date Type Department Care Team (Late st Contact Info) Description 08/17/2025 External Device Data [place] ABSTRACTION Provider, Abstract NO ADDRESS ON FILE Social History Tobacco Use Types Packs/Day Years Used Date Smoking Tobacco: Every Day Cigarettes Smokeless Tobacco: Never Alcohol Use Standard Drinks/Week Comments Yes 0 (1 standard drink = 0.6 oz pur e alcohol) very rarely Feeling Safe Answer Date Recorded Are you in a relationship wi th someone who hurts you emotionally and/or physically? No 04/14/2025 Comments No Sex and Gender Information Value Date Recorded Sex Assigned at Not on file Legal Sex Female 9:58 PM CDT Gender Identity Not on file Sexual Orientation Not on file documented as of this encounter Plan of Treatment Upcoming Encounters Date Type Department Care Team (Late st Contact Info) Description 12/06/2025 2:40 PM CDT Office Visit [facility] [address] [place] [phone] Ronni Garcia, DATA PROCESSING CONTROL CLERK [address] [place] [phone] documented as of this encounter Visit Diagnoses Not on filedocumented in this encounter
--- OUTSIDE RECORDS SUMMARY | 2025-08-25 10:46 | XMS_ITS | Clinical Summary ---
Author Organization [facility] Based Address [address] [place] [address] Care Team Providers Care Hatchery Man Name Role Phone Unavailable Primary Care Provider Unavailabl e Allergies Active Allergy Reactions Criticality Noted Date Comments Weldon Syrup Itching Low 01/18/2024 Lisinopril Itching,Nausea and Vomiting Low 01/18/20 24 Medications albuterol (PROVENTIL,VENTOL IN) 2.5 mg /3 mL (0.083 %) Solution for Nebulization Take 2.5 mg by inhalation one time only. Active chlorhexidine gluconate 0.12 % Mouthwash 15 mL by Mouth/Throat route 2 times daily. Active hydrocortisone (PROCTOZONE-HC) 2.5 % cream with perineal applicator Insert by rectum 2 times daily. Active albuterol sulfate HFA 90 mcg/actuation aerosol inhaler Take 2 Puffs by inhalation every 6 hours as needed for Shortness of Breath. Active ergocalciferol (VITAMIN D2) 50,000 unit capsule Take 50,000 Units by mouth every 7 days. Active fluticasone furoate-vilantero L (Breo Ellipta) 100-25 mcg/dose Disk with Device Take 1 Puff by inhalation daily. Active ketoconazole (NIZORAL) 2 % Shampoo daily. Active Zonisamide (ZONEGRAN) 100 mg capsule Take 100 mg by mouth daily. Active nitroglycerin (NITROSTAT) 0.4 mg Tablet, Sublingual Place 1 Tablet (0.4 mg) under tongue every 5 minutes as needed for Chest Pain. 25 Tablet 3 4 Active OLANZapine (ZyPREXA) 2.5 mg tablet Take 1 Tablet by mouth daily. 4 Active spironolactone (ALDACTONE) 25 mg tabletIndications :Chronic systolic congestive heart failure (CMS/HCC) Take 1 Tablet (25 mg) by mouth daily. 30 Tablet 11 5 Active amiodarone (CORDARONE) 200 mg tablet Take 1 tablet by mouth once daily 90 Tablet 3 5 Active Entresto 24-26 mg Tablet Take 1 tablet by mouth twice daily 180 Tablet 3 5 Active empagliflozin (Jardiance) 10 mg tablet TAKE 1 TABLET BY MOUTH ONCE DAILY IN THE MORNING 90 Tablet 3 5 Active carvediloL (COREG) 3.125 mg tablet Take 1 tablet by mouth twice daily with food 180 Tablet 2 5 Active Fetzima 120 mg Extended Release 24 hour capsule Take 120 mg by mouth daily. Active furosemide (LASIX) 40 mg tablet Take 1 Tablet (40 mg) by mouth daily. 30 Tablet 1 5 Active apixaban (Eliquis) 5 mg tablet Take 1 tablet by mouth twice daily 180 Tablet 3 5 Active atorvastatin (LIPITOR) 20 mg tabletIndications :ASHD (arteriosclerotic heart disease) Take 1 Tablet (20 mg) by mouth daily at bedtime. 90 Tablet 3 5 Active aspirin (ECOTRIN EC) 81 mg Tablet, Delayed Release (E.C.) Take 81 mg by mouth daily. 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 Chronic systolic congestive heart failure 2024 Biventricular ICD (implantab le cardioverter-defibrillator) in place 10/07/2024 A-fib 10/07/2024 Resolved Problems Problem Noted Date Diagnosed Date Resolved Date ASHD (arteriosclerotic heart disease) 10/07/2024 03/18/2025 Encounters Date Type Department Care Team Description 08/17/2025 External Device Data [facility] ABSTRACTION Provider, Abstract 07/15/2025 Abstract [place] [id number] [place] [phone] Provider, Abstract 07/13/2025 External Device Data [facility] ABSTRACTION Provider, Abstract 07/06/2025 10:40 AM CLOTH FOLDER MACHINE Office Visit [place] [address] [place] [phone] Joan Romano, JENNY HFrEF (heart failure with reduced ejection fraction) (CMS/HCC) (Primary Dx); Biventricular ICD (implantable cardioverter-defibril lator) in place; 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; Paroxysmal atrial fibrillation (CMS/HCC) 06/21/2025 8:00 AM CDT Procedure visit [place] [address] [address] [place] [phone] Congestive heart failure, unspecified HF chronicity, unspecified heart failure type (CMS/HCC) (Primary Dx); Automatic implantable cardioverter-defibril lator in situ 06/21/2025 Telephone [place] [id number] [facility] [address] [place] [phone] Victor Manuel Garay MD Follow Up 06/10/2025 Orders Only [place] [address] [facility] [address] [place] [phone] Janae Farrar, RN ASHD (arteriosclerotic heart disease) (Primary Dx) 06/08/2025 External Device Data [facility] ABSTRACTION Provider, Abstract from Last 3 Months Social History Tobacco Use Types Packs/Day Years Used Date Smoking Tobacco: Every Day Cigarettes Smokeless Tobacco: Never Tobacco Cessation:Ready to Q uit: Not Asked; Counseling Given: Not Answered Alcohol Use Standard Drinks/Week Comments Yes 0 [...] on file Sexual Orientation Not on file Last Filed Vital Signs Vital Sign Reading Time Taken Comments Blood Pressure 102/62 07/06/2025 10:38 AM CLOTH FOLDER MACHINE Pulse 72 07/06/2025 10:38 AM CLOTH FOLDER MACHINE Temperature 36.1 C (96.9 F) 04/14/2025 5:45 PM CDT Respiratory Rate 19 04/14/2025 5:45 PM CDT Oxygen Saturation 96% 04/14/2025 5:45 PM CDT Inhaled Oxygen Concentration - - Weight 101 kg (222 lb 9.6 oz) 07/06/2025 10:38 A M CLOTH FOLDER MACHINE Height 175.3 cm (5' 9 ) 07/06/2025 10:38 AM CLOTH FOLDER MACHINE Body Mass Index 32.87 07/06/2025 10:38 AM CLOTH FOLDER MACHINE Plan of Treatment Upcoming Encounters Date Type Department Care Team (Late st Contact Info) Description 12/06/2025 2:40 PM CDT Office Visit [facility] [address] [facility] [address] [place] [phone] Ronni Garcia, [facility] [address] [facility] [address] [place] [phone] Health Maintenance Due Date Last Done Comments Pre-Diabetes and Diabetes Screening 1975 HEPATITIS B VACCINES (1 of 3 - 19+ 3-dose series) 05/03 HPV/Cotest (21-29) 1995 DTAP/TDAP/TD VACCINES (1 - Tdap) 12/30/2001 12/30/19 02 CERVICAL CANCER SCREENING 2004 HPV/Cotest (30-65) 2004 PAP SMEAR 2004 BREAST CANCER SCREENING 2014 COLORECTAL SCREENING 2019 Colorectal Cancer Screening 2019 FIT-DNA Q 3 years 2019 FIT/FOBT Q 1 year 2019 Flex Sig/CT Colonography Q 5 years 2019 ZOSTER VACCINE (1 of 2) 2024 [place]) Prev entative Visit/Annual Wellness Visit 09/02/2024 INFLUENZA VACCINE (#1) 2025 Procedures Procedure Name Priority Date/Time Associated Diagnosis Comments EKG 12-LEAD Routine 07/06/2025 OK INTERROG EVAL, REMOTE, UP TO 90 DAYS, PACER/DEFIB WITHIN GLOBAL Routine 06/21/2025 9:35 AM CDT Congestive heart failure, unspecified HF chronicity, unspecified heart failure type (CMS/HCC) Automatic implantable cardioverter-defibri llator in situ OK INTERROG EVAL, REMOTE, UP TO 90 DAYS,CARDVERT/DEFIB WITHIN GLOBAL Routine 06/21/2025 9:35 AM CDT Congestive heart failure, unspecified HF chronicity, unspecified heart failure type (CMS/HCC) Automatic implantable cardioverter-defibri llator in situ from Last 3 Months Results * (ABNORMAL) EKG 12-LEAD (07/06/2025) us Joan Romano CINDER DUMP CRANE OPERATOR ECG ORDERABLES Final Resu lt [facility] [id number] [address] [facility] [address] [place] [phone], [place] [phone] * OK INTERROG EVAL, REMOTE, UP TO 90 DAYS,CARDVERT/DEFIB WITHIN GLOBAL, OK INTERROG EVAL, REMOTE, UP TO 90 DAYS, PACER/DEFIB WITHIN GLOBAL (06/21/2025 9:35 AM CDT) 06/21/2025 9:35 AM CDT Narrative INTERFACE SYSTEM - 06/21/2025 10:11 AM CDT . Remote Transmission Report Date of Procedure: June 21, 2025 Events: no tachyarrhythmias detected, no therapies delivered Comments: Latitude remote transmission reveals normal tri chamber ICD function with stable available threshold and impedance trends. Heart logic index is elevated to 18. Presenting EGM indicates Atrial tracking with ventricular capture. Follow-up with Remote in 3 months. Procedure Note Provider, Historical - 06/21/2025 . Remote Transmission Report Date of Procedure: June 21, 2025 Events: no tachyarrhythmias detected, no therapies delivered Comments: Latitude remote transmission reveals normal tri chamber ICD function withstable available threshold and impedance trends. Heart logic index iselevated to 18. Presenting EGM indicates Atrial tracking with ventricular capture. Follow-up with Remote in 3 months. us Victor Manuel Garay MD CARDIAC SERVICES ORDERABLES E dited Result - Final INTERFACE SYSTEM Refer to clinic/hospital department from Last 3 Months Insurance [place] [address] [place] [address] DUAL COMPLETE PPO [facility] [id number]
--- NOTE | 2025-08-25 10:53 | XR_ITS ---
WS: [id number] Portable AP upright chest, 08/25/2025 Clinical Data: cp, sob Comparison: Portable chest, 01/15/2024 Findings: No nodules, masses or effusions are seen. The heart is enlarged. The pulmonary vascularity is not increased. No pneumonia or pneumothorax is seen. There is a cardiac pacemaker with the generator overlying the left lateral chest and left axilla. Monitor leads are on the chest wall. XR/XR chest 1V portable [id number] Impression: Cardiomegaly and cardiac pacemaker.
--- NOTE | 2025-08-25 10:56 | W.ED.CHESTPA ---
Documented by User: STEPHANIE Marino 08/25/25 13:03 HPI - Chest Pain General: Chief Complaint: Chest Pain Stated Complaint: chest pain N/V Time Seen by Provider: 08/25/25 10:43 Source: patient and old records reviewed Mode of arrival: EMS Limitations: no limitations History of Present Illness: Patient is a 50-year-old female with past medical history of congestive heart failure, COPD, previous IL, and pacemaker/defibrillator presenting to the emergency department by ambulance for chest pain that she awoke with this morning. She notes that she woke up with the pain in his bilateral in nature with radiation into the back. States that for a few days she has had generalized neck pain and that this got worse with the onset of chest pain. She notes associated symptoms of shortness of breath, dizziness and lightheadedness, diaphoresis, and nausea with a couple episodes of vomiting. States that she took 3 of her nitro and she called the ambulance as she was concerned that this did not relieve her pain. Her blood pressure is 115/69 at this time, ambulance also gave aspirin prehospital, patient states that the pain has improved somewhat but is still present at this time. Describes it as a mild dull aching. 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 Denies any history of stent placement. She denies any cough, wheezing, or phlegm production as she states she has COPD but this does not feel like an exacerbation. MD complaint: chest pain Onset (ago): hour(s) Timing of current episode: constant and still present Prior episodes: Yes Onset: awoke with symptoms Pain location: left chest and right chest Pain radiation: back Severity: mild Quality: aching and dull Relieving factors: nothing Exacerbating factors: nothing Associated symptoms: Reports diaphoresis, dyspnea, nausea and vomiting; Deny abdominal pain, fever(s) or palpitations Treatment prior to arrival: aspirin and nitroglycerin Related Data Home Medications ?Medication ?Instructions ?Recorded ?Confirmed empagliflozin 10 mg tablet 10 mg PO QAM 08/07/22 07/28/25 (Jardiance) apixaban 5 mg tablet (Eliquis) 5 mg PO BID 09/25/23 07/28/25 aspirin 81 mg tablet,delayed 81 mg PO DAILY 09/25/23 07/28/25 release (Adult Low Dose Aspirin) sacubitril 24 mg-valsartan 26 mg 1 tab PO BID 01/21/24 07/28/25 tablet (Entresto) atorvastatin 20 mg tablet 20 mg PO QDAY 10/08/24 07/28/25 spironolactone 25 mg tablet 12.5 mg PO DAILY 10/08/24 07/28/25 furosemide 40 mg tablet 40 mg PO QAM 06/24/25 07/28/25 Previous Rx's ?Medication ?Instructions ?Recorded nebulizers #1 ea 07/03/21 nebulizer and kit (mask/tubing etc) #1 ea 12/04/21 nitroglycerin 0.4 mg sublingual 0.4 mg sublingual Q5M PRN chest 04/11/22 tablet pain #30 tabs amiodarone 200 mg tablet 200 mg PO DAILY #10 tabs 01/06/24 carvedilol 3.125 mg tablet (Coreg) 3.125 mg PO BID #20 tabs 01/06/24 albuterol sulfate 2.5 mg/3 mL 2.5 mg (3 mL) inhalation Q4H PRN 10/08/24 (0.083 %) solution for nebulization bronchospasm #180 mL chlorhexidine gluconate 0.12 % 15 ml buccal BID PRN mouth 10/08/24 mouthwash (Peridex) infection #473 mL hydrocortisone 2.5 % topical cream 1 applic IA DAILY PRN hemorrhoids 12/22/24 with perineal applicator #30 grams (Anusol-HC) ergocalciferol (vitamin D2) 1,250 50,000 unit PO .weekly #4 caps 02/08/25 mcg (50,000 unit) capsule levomilnacipran 120 mg capsule,24 120 mg PO DAILY #30 caps 02/08/25 hr,extended release (Fetzima) olanzapine 2.5 mg tablet 2.5 mg PO BID #180 tabs 02/08/25 zonisamide 100 mg capsule 100 mg PO BID #180 caps 02/08/25 ketoconazole 2 % shampoo 1 applic topical .weekly #120 mL 03/13/25 potassium chloride 8 mEq 8 meq PO DAILY #30 caps 04/23/25 capsule,extended release albuterol sulfate 90 mcg/actuation 2 puff inhalation QID PRN 05/11/25 aerosol inhaler (Ventolin HFA) shortness of breath or wheezing #8.5 grams lidocaine 5 % topical patch 2 patch topical DAILY #30 ea 06/24/25 fluticasone furoate 100 1 inh inhalation Q24H #180 ea 07/27/25 mcg-vilanterol 25 mcg/dose inhalation powder (Breo Ellipta) nebulizers #1 ea 08/19/25 Allergies Allergy/AdvReac Type Severity Reaction Status Date / Time corn syrup Allergy Mild swelling Verified 07/28/25 13:02 lisinopril Allergy ADR/ALGY-Pa Verified 07/28/25 13:02 lpitations Review of Systems General: Reports: 10 or more systems reviewed and unremarkable except in HPI and below Const: Reports: diaphoresis; Denies: fever(s), chills or fatigue Eyes: Denies: change in vision ENMT: Denies: throat pain, ear or mastoid pain or nasal discharge Card: Reports: chest pain and lightheadedness; Denies: palpitations or swelling of feet/ankles Resp: Reports: dyspnea; Denies: productive cough or wheezing GI: Reports: nausea and vomiting; Denies: abdominal pain, diarrhea or constipation : Denies: flank pain, difficulty voiding, dysuria or urinary frequency Musc: Reports: neck pain and back pain; Denies: joint pain Skin/Breast: Denies: rash Neuro: Reports: dizziness; Denies: headache(s), numbness in extremities or weakness in extremities PFSH ED PFSH: Medical History Implantable cardioverter-defibrillator (ICD) in situ Anxiety with depression External hemorrhoid Cigarette smoker Diverticula, colon Chronic intermittent steroid use Chronic obstructive pulmonary disease, unspecified CHF (congestive heart failure) Gastric reflux Gingivitis Vitamin D deficiency History of pacemaker Surgical History History of colonoscopy with polypectomy 04/09/24 [facility] recheck 2026 History of hysterectomy 06/06/2021 History of implantable cardiac defibrillator (ICD) History of cholecystectomy History of tubal ligation Family History Mother Cancer colon Thyroid disease Grandfather Cancer Paternal - pancreatic Grandmother Cancer Maternal - colon Thyroid disease Maternal and Paternal Grandfather Cancer Maternal - prostate Stroke Paternal Daughter Clotting disorder Antiphospholipid syndrome Father Hyperlipidemia Hypertension Denies family history of Diabetes CAD (coronary artery disease) Chronic kidney disease (CKD) Bleeding disorder Social History Smoking and tobacco/nicotine status: current every day tobacco/nicotine user cigarettes Second hand smoke exposure: Yes Alcohol intake: never Substance/Drug Use: never Caregiver/support person: No Lives independently: Yes Household members: spouse and children Housing: House Marital status: Number of children: 2 service: No Current occupational status: unemployed Current occupational exposures/hazards: No Pets and animals: Yes Do you think of yourself as: Straight/Heterosexual Current gender identity: Female Physical Exam Const: COMMON NORMALS: no acute distress, patient oriented x3 and no limitations GENERAL APPEARANCE: cooperative, comfortable and well developed ORIENTATION/CONSCIOUSNESS: Yes awake, Yes oriented to person, Yes oriented to place and Yes oriented to time HENMT: COMMON NORMALS: normocephalic, atraumatic and hearing grossly normal bilaterally HEAD & SCALP: normocephalic and atraumatic Eye: COMMON NORMALS: Equal, round and reactive pupils present, EOMs intact bilaterally and conjunctivae normal CONJUNCTIVA: Yes conjunctivae normal PUPIL: Yes Equal, round and reactive pupils present Resp: COMMON NORMALS: normal respiratory effort, No retractions, No use of accessory muscles and clear to auscultation bilaterally AUSCULTATION: clear to auscultation bilaterally Cardio: COMMON NORMALS: regular rate, regular rhythm, No clicks present (Cardio), No murmurs present (Cardio) and No rub (Cardio) RATE: regular rate RHYTHM: regular rhythm GI: COMMON NORMALS: Normal to inspection, nondistended, normoactive bowel sounds present, Soft to palpation and non-tender AUSCULTATION: Yes normoactive bowel sounds PALPATION: Yes Soft to palpation RECTAL EXAM: deferred Extremity: COMMON NORMALS: normal to inspection, full ROM, capillary refill normal and no pedal edema Neuro: COMMON NORMALS: patient oriented x3, moves all extremities, no focal motor deficits and no sensory deficits noted SENSORIUM/ORIENTATION: Yes oriented to person, Yes oriented to place and Yes oriented to time Skin: COMMON NORMALS: no rashes or lesions noted GENERAL SKIN EXAM: no rashes or lesions noted Course Vital Signs: Vital signs: Vital Signs Temperature 98.7 F 08/25/25 10:44 Pulse Rate 70 08/25/25 12:22 Respiratory Rate 16 08/25/25 12:22 Blood Pressure 115/69 08/25/25 10:53 Pulse Oximetry 96 08/25/25 12:22 Oxygen Delivery Me thod Room Air 08/25/25 12:22 MDM - Chest Pain Medical Decision Making Patient presented by ambulance for evaluation of chest pain. Pertinent past medical history of cardiac pacemaker/defibrillator, COPD, congestive heart failure, and patient tells me history of IL. She has no stents placed, sees cardiology in [place] states that she has not had any abnormalities on her annual stress test or echocardiogram in recent years. States it has been 2 years since her pacemaker has been off on her. Ambulance gave aspirin prehospital as well as Zofran, and patient tells me she took 3 nitroglycerin sublingual at home but did not improve her pain. Patient arrives stating pain was much improved, and she had other anginal equivalent symptoms with the onset of pain that are no longer present, refer to the [facility] for the full history. Her chest x-ray obtained shows cardiomegaly with no other acute cardiopulmonary findings. Her CBC unremarkable, CMP normal. Her delta troponin is negative, BNP chronically elevated. First EKG obtained showed pacemaker and left bundle branch that reviewing past appears that this is old, on repeat EKG there is QTc prolongation to 582 of unknown significance being that she has electronic pacemaker. She was given the Zofran which she has known QT prolonged gating, reviewing her med list I do not see any other QT prolonging medications. Magnesium is being checked at this time to evaluate for abnormality, her other electrolytes were normal. I spoke to Mary High, nurse practitioner with Dr. Varela, who consults the patient here in the emergency department and agrees to consultation on behalf of Dr. Varela. Spoke to hospitalist, Dr. Don, agreeing to except the patient to med/tele observation for patient will have cardiology consult. Spoke to Dr. Guerrero here in the emergency department and regards to this patient's case and current findings, will place admit orders at this time. Lab Data 08/25/25 10:55 08/25/25 10:55 Radiology Impressions Chest X-Ray 08/25/25 10:53 Impression: Cardiomegaly and cardiac pacemaker. Laboratory Results WBC 11.70 10^3/uL (3.29-11.43) H 08/25/25 10:55 RBC 5.28 10^6/uL (3.85-5.65) 08/25/25 10:55 Hgb 16.10 g/dL (11.27-16.99) 08/25/25 10:55 Hct 49.6 % (36-47) H 08/25/25 10:55 MCV 93.9 fl (85-98) 08/25/25 10:55 MCH 30.5 pg (27-33) 08/25/25 10:55 MCHC 32.5 g/dL (30-55) 08/25/25 10:55 RDW 13.6 % (12.1-15.1) 08/25/25 10:55 Plt Count 278 10^3/cmm (157-399) 08/25/25 10:55 MPV 11.9 fL (7.4-10.4) H 08/25/25 10:55 Neut % (Auto) 69.1 % 08/25/25 10:55 Lymph % (Auto) 23.0 % 08/25/25 10:55 [place] % (Auto) 4.4 % 08/25/25 10:55 Eos % (Auto) 2.3 % 08/25/25 10:55 Baso % (Auto) 0.9 % 08/25/25 10:55 Neut # (Auto) 8.07 10^3/uL (1.8-7.7) H 08/25/25 10:55 Lymph # (Auto) 2.7 10^3/uL (0.8-4.8) 08/25/25 10:55 [place] # (Auto) 0.5 10^3/uL (0.2-0.9) 08/25/25 10:55 Eos # (Auto) 0.3 10^3/uL (0.0-0.8) 08/25/25 10:55 Baso # (Auto) 0.1 10^3/uL (0.0-0.1) 08/25/25 10:55 Nucleated RBC % (auto) 0 % 08/25/25 10:55 Nucleated RBCs # 0.0 /100WBC 08/25/25 10:55 Sodium 138 mmol/L (136-145) 08/25/25 10:55 Potassium 3.5 mmol/L (3.5-5.1) 08/25/25 10:55 Chloride 101 mmol/L (98-107) 08/25/25 10:55 Carbon Dioxide 28 mmol/L (22-29) 08/25/25 10:55 Anion Gap 12.5 (5-19) 08/25/25 10:55 BUN 9 mg/dL (6-20) 08/25/25 10:55 Creatinine 0.9 mg/dL (0.5-0.9) 08/25/25 10:55 GFR Calculation 66.0 mL/min (90-130) L 08/25/25 10:55 Glucose 142 mg/dL (65-115) H 08/25/25 10:55 Calculated Osmolality 287 mOsm/kg (285-295) 08/25/25 10:55 Calcium 8.8 mg/dL (8.5-10.5) 08/25/25 10:55 Magnesium 2.3 mg/dL (1.7-2.3) 08/25/25 10:55 Total Bilirubin 0.3 mg/dL (0.15-1.2) 08/25/25 10:55 AST 21 U/L (0-32) 08/25/25 10:55 ALT 16 U/L (0-33) 08/25/25 10:55 Alkaline Phosphatase 116 U/L (35-105) H 08/25/25 10:55 Troponin T Baseline 16 ng/L (0-10) H 08/25/25 10:55 Troponin T 60 Minute 19.15 ng/L (0-10) H 08/25/25 11:47 Delta Troponin T 3.15 ABS# (0-10) 08/25/25 11:47 NT-Pro-B Natriuret Pep 2935 pg/mL (0-125) H 08/25/25 10:55 Total Protein 6.1 g/dL (6.6-8.7) L 08/25/25 10:55 Albumin 4.4 g/dL (3.5-5.2) 08/25/25 10:55 Globulin 1.7 g/dL (1.3-4.6) 08/25/25 10:55 Influenza A (PCR) Negative (Negative) 08/25/25 10:55 Influenza Type B (PCR) Negative (Negative) 08/25/25 10:55 RSV (PCR) Negative (Negative) 08/25/25 10:55 SARS-CoV-2 (PCR) Negative (Negative) 08/25/25 10:55 All radiology interpretation(s) finalized by discharge Discharge Plan Discharge Patient Disposition: Placed in Observation Clinical Impression: Chest pain Qualifiers: Chest pain type: unspecified Qualified Code(s): R07.9 - Chest pain, unspecified Coding Level of Care Code ED Enterprise Sales Executive for Chg Fwd Heart Score HEART Score Components History: Highly Suspicious EKG: Non-specific Changes Age: 45-64 yrs Risk Factors: >/=3 Risk Factors Troponin: Baseline Trop 16-45 ng/L HEART Score RESULT HEART Score: 7 Documented by User: Soumya Guerrero MD 08/25/25 13:10 HPI - Chest Pain General: Chief Complaint: Chest Pain Stated Complaint: chest pain N/V Time Seen by Provider: 08/25/25 10:43 Related Data Home Medications ?Medication ?Instructions ?Recorded ?Confirmed empagliflozin 10 mg tablet 10 mg PO QAM 08/07/22 07/28/25 (Jardiance) apixaban 5 mg tablet (Eliquis) 5 mg PO BID 09/25/23 07/28/25 aspirin 81 mg tablet,delayed 81 mg PO DAILY 09/25/23 07/28/25 release (Adult Low Dose Aspirin) sacubitril 24 mg-valsartan 26 mg 1 tab PO BID 01/21/24 07/28/25 tablet (Entresto) atorvastatin 20 mg tablet 20 mg PO QDAY 10/08/24 07/28/25 spironolactone 25 mg tablet 12.5 mg PO DAILY 10/08/24 07/28/25 furosemide 40 mg tablet 40 mg PO QAM 06/24/25 07/28/25 Previous Rx's ?Medication ?Instructions ?Recorded nebulizers #1 ea 07/03/21 nebulizer and kit (mask/tubing etc) #1 ea 12/04/21 nitroglycerin 0.4 mg sublingual 0.4 mg sublingual Q5M PRN chest 04/11/22 tablet pain #30 tabs amiodarone 200 mg tablet 200 mg PO DAILY #10 tabs 01/06/24 carvedilol 3.125 mg tablet (Coreg) 3.125 mg PO BID #20 tabs 01/06/24 albuterol sulfate 2.5 mg/3 mL 2.5 mg (3 mL) inhalation Q4H PRN 10/08/24 (0.083 %) solution for nebulization bronchospasm #180 mL chlorhexidine gluconate 0.12 % 15 ml buccal BID PRN mouth 10/08/24 mouthwash (Peridex) infection #473 mL hydrocortisone 2.5 % topical cream 1 applic IA DAILY PRN hemorrhoids 12/22/24 with perineal applicator #30 grams (Anusol-HC) ergocalciferol (vitamin D2) 1,250 50,000 unit PO .weekly #4 caps 02/08/25 mcg (50,000 unit) capsule levomilnacipran 120 mg capsule,24 120 mg PO DAILY #30 caps 02/08/25 hr,extended release (Fetzima) olanzapine 2.5 mg tablet 2.5 mg PO BID #180 tabs 02/08/25 zonisamide 100 mg capsule 100 mg PO BID #180 caps 02/08/25 ketoconazole 2 % shampoo 1 applic topical .weekly #120 mL 03/13/25 potassium chloride 8 mEq 8 meq PO DAILY #30 caps 04/23/25 capsule,extended release albuterol sulfate 90 mcg/actuation 2 puff inhalation QID PRN 05/11/25 aerosol inhaler (Ventolin HFA) shortness of breath or wheezing #8.5 grams lidocaine 5 % topical patch 2 patch topical DAILY #30 ea 06/24/25 fluticasone furoate 100 1 inh inhalation Q24H #180 ea 07/27/25 mcg-vilanterol 25 mcg/dose inhalation powder (Breo Ellipta) nebulizers #1 ea 08/19/25 Allergies Allergy/AdvReac Type Severity Reaction Status Date / Time corn syrup Allergy Mild swelling Verified 07/28/25 13:02 lisinopril Allergy ADR/DOUGLASY-Pa Verified 07/28/25 13:02 lpitations PFSH ED PFSH: Medical History Implantable cardioverter-defibrillator (ICD) in situ Anxiety with depression External hemorrhoid Cigarette smoker Diverticula, colon Chronic intermittent steroid use Chronic obstructive pulmonary disease, unspecified CHF (congestive heart failure) Gastric reflux Gingivitis Vitamin D deficiency History of pacemaker Surgical History History of colonoscopy with polypectomy 04/09/24 [facility] recheck 2026 History of hysterectomy 06/06/2021 History of implantable cardiac defibrillator (ICD) History of cholecystectomy History of tubal ligation Family History Mother Cancer colon Thyroid disease Grandfather Cancer Paternal - pancreatic Grandmother Cancer Maternal - colon Thyroid disease Maternal and Paternal Grandfather Cancer Maternal - prostate Stroke Paternal Daughter Clotting disorder Antiphospholipid syndrome Father Hyperlipidemia Hypertension Denies family history of Diabetes CAD (coronary artery disease) Chronic kidney disease (CKD) Bleeding disorder Social History Smoking and tobacco/nicotine status: current every day tobacco/nicotine user cigarettes Second hand smoke exposure: Yes Alcohol intake: never Substance/Drug Use: never Caregiver/support person: No Lives independently: Yes Household members: spouse and children Housing: House Marital status: Number of children: 2 service: No Current occupational status: unemployed Current occupational exposures/hazards: No Pets and animals: Yes Do you think of yourself as: Straight/Heterosexual Current gender identity: Female Course Vital Signs: Vital signs: Vital Signs Temperature 98.7 F 08/25/25 10:44 Pulse Rate 70 08/25/25 12:22 Respiratory Rate 16 08/25/25 12:22 Blood Pressure 115/69 08/25/25 10:53 Pulse Oximetry 96 08/25/25 12:22 Oxygen Delivery Me thod Room Air 08/25/25 12:22 MDM - Chest Pain Medical Decision Making Patient presented by ambulance for evaluation of chest pain. Pertinent past medical history of cardiac pacemaker/defibrillator, COPD, congestive heart failure, and patient tells me history of IL. She has no stents placed, sees cardiology in [place] states that she has not had any abnormalities on her annual stress test or echocardiogram in recent years. States it has been 2 years since her pacemaker has been off on her. Ambulance gave aspirin prehospital as well as Zofran, and patient tells me she took 3 nitroglycerin sublingual at home but did not improve her pain. Patient arrives stating pain was much improved, and she had other anginal equivalent symptoms with the onset of pain that are no longer present, refer to the [facility] for the full history. Her chest x-ray obtained shows cardiomegaly with no other acute cardiopulmonary findings. Her CBC unremarkable, CMP normal. Her delta troponin is negative, BNP chronically elevated. First EKG obtained showed pacemaker and left bundle branch that reviewing past appears that this is old, on repeat EKG there is QTc prolongation to 582 of unknown significance being that she has electronic pacemaker. She was given the Zofran which she has known QT prolonged gating, reviewing her med list I do not see any other QT prolonging medications. Magnesium is being checked at this time to evaluate for abnormality, her other electrolytes were normal. I spoke to Mary High, nurse practitioner with Dr. Varela, who consults the patient here in the emergency department and agrees to consultation on behalf of Dr. Varela. Spoke to hospitalist, Dr. Don, agreeing to except the patient to med/tele observation for patient will have cardiology consult. Spoke to Dr. Guerrero here in the emergency department and regards to this patient's case and current findings, will place admit orders at this time. The case was discussed with the midlevel provider. Evaluation and management service: I agree with the evaluation and management decisions made in this patient's care. Results interpretation: I agree with the study interpretation in this patient's care, I agree with the documentation of the study interpretation. Lab Data 08/25/25 10:55 08/25/25 10:55 Radiology Impressions Chest X-Ray 08/25/25 10:53 Impression: Cardiomegaly and cardiac pacemaker. Laboratory Results WBC 11.70 10^3/uL (3.29-11.43) H 08/25/25 10:55 RBC 5.28 10^6/uL (3.85-5.65) 12/24/25 10:55 Hgb 16.10 g/dL (11.27-16.99) 08/25/25 10:55 Hct 49.6 % (36-47) H 08/25/25 10:55 MCV 93.9 fl (85-98) 08/25/25 10:55 MCH 30.5 pg (27-33) 08/25/25 10:55 MCHC 32.5 g/dL (30-55) 08/25/25 10:55 RDW 13.6 % (12.1-15.1) 08/25/25 10:55 Plt Count 278 10^3/cmm (157-399) 08/25/25 10:55 MPV 11.9 fL (7.4-10.4) H 08/25/25 10:55 Neut % (Auto) 69.1 % 08/25/25 10:55 Lymph % (Auto) 23.0 % 08/25/25 10:55 [place] % (Auto) 4.4 % 08/25/25 10:55 Eos % (Auto) 2.3 % 08/25/25 10:55 Baso % (Auto) 0.9 % 08/25/25 10:55 Neut # (Auto) 8.07 10^3/uL (1.8-7.7) H 08/25/25 10:55 Lymph # (Auto) 2.7 10^3/uL (0.8-4.8) 08/25/25 10:55 [place] # (Auto) 0.5 10^3/uL (0.2-0.9) 08/25/25 10:55 Eos # (Auto) 0.3 10^3/uL (0.0-0.8) 08/25/25 10:55 Baso # (Auto) 0.1 10^3/uL (0.0-0.1) 08/25/25 10:55 Nucleated RBC % (auto) 0 % 08/25/25 10:55 Nucleated RBCs # 0.0 /100WBC 08/25/25 10:55 Sodium 138 mmol/L (136-145) 08/25/25 10:55 Potassium 3.5 mmol/L (3.5-5.1) 08/25/25 10:55 Chloride 101 mmol/L (98-107) 08/25/25 10:55 Carbon Dioxide 28 mmol/L (22-29) 08/25/25 10:55 Anion Gap 12.5 (5-19) 08/25/25 10:55 BUN 9 mg/dL (6-20) 08/25/25 10:55 Creatinine 0.9 mg/dL (0.5-0.9) 08/25/25 10:55 GFR Calculation 66.0 mL/min (90-130) L 08/25/25 10:55 Glucose 142 mg/dL (65-115) H 08/25/25 10:55 Calculated Osmolality 287 mOsm/kg (285-295) 08/25/25 10:55 Calcium 8.8 mg/dL (8.5-10.5) 08/25/25 10:55 Magnesium 2.3 mg/dL (1.7-2.3) 08/25/25 10:55 Total Bilirubin 0.3 mg/dL (0.15-1.2) 08/25/25 10:55 AST 21 U/L (0-32) 08/25/25 10:55 ALT 16 U/L (0-33) 08/25/25 10:55 Alkaline Phosphatase 116 U/L (35-105) H 08/25/25 10:55 Troponin T Baseline 16 ng/L (0-10) H 08/25/25 10:55 Troponin T 60 Minute 19.15 ng/L (0-10) H 08/25/25 11:47 Delta Troponin T 3.15 ABS# (0-10) 08/25/25 11:47 NT-Pro-B Natriuret Pep 2935 pg/mL (0-125) H 08/25/25 10:55 Total Protein 6.1 g/dL (6.6-8.7) L 08/25/25 10:55 Albumin 4.4 g/dL (3.5-5.2) 08/25/25 10:55 Globulin 1.7 g/dL (1.3-4.6) 08/25/25 10:55 Influenza A (PCR) Negative (Negative) 08/25/25 10:55 Influenza Type B (PCR) Negative (Negative) 08/25/25 10:55 RSV (PCR) Negative (Negative) 08/25/25 10:55 SARS-CoV-2 (PCR) Negative (Negative) 08/25/25 10:55 Discharge Plan Discharge Patient Disposition: Placed in Observation Clinical Impression: Chest pain Qualifiers: Chest pain type: unspecified Qualified Code(s): R07.9 - Chest pain, unspecified Coding Level of Care Code ED Enterprise Sales Executive for [employer]rade[employer] Angelina Heart Score HEART Score RESULT HEART Score: 7
[2025-08-25 11:07] LABS: Hematocrit 49.6 % (36-47); Hemoglobin 16.10 g/dL (11.27-16.99); Mean Corpuscular HGB Conc 32.5 g/dL (30-55); Mean Corpuscular Hemoglobin 30.5 pg (27-33); Mean Corpuscular Volume 93.9 fl (85-98); Nucleated Red Blood Cells % 0 %; Platelet Count 278 10^3/cmm (157-399); Red Blood Count 5.28 10^6/uL (3.85-5.65); White Blood Count 11.70 10^3/uL (3.29-11.43)
[2025-08-25 11:37] LABS: Troponin(5th) Baseline 16 ng/L (0-10)
[2025-08-25 11:42] LABS: Respiratory Syncytial Virus Ce NEGATIVE (Negative); SARS-CoV-2 PCR NEGATIVE (Negative)
[2025-08-25 11:45] LABS: Alanine Aminotransferase 16 U/L (0-33); Albumin Level 4.4 g/dL (3.5-5.2); Alkaline Phosphatase 116 U/L (35-105); Anion Gap 12.5 (5-19); Aspartate Amino Transferase 21 U/L (0-32); Blood Urea Nitrogen 9 mg/dL (6-20); Calcium 8.8 mg/dL (8.5-10.5); Carbon Dioxide 28 mmol/L (22-29); Chloride 101 mmol/L (98-107); Globulin 1.7 g/dL (1.3-4.6); Glucose 142 mg/dL (65-115); NT Pro B Type Natriuretic Pept 2935 pg/mL (0-125); Osmolality Calculated 287 mOsm/kg (285-295); Potassium 3.5 mmol/L (3.5-5.1); Sodium 138 mmol/L (136-145); Total Protein 6.1 g/dL (6.6-8.7)
--- NOTE | 2025-08-25 12:14 | ECG_ITS ---
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: : 1975 Requested By: Victor Manuel Cai Order Number: [id number] Shwetha MD: JIN MARC Measurements Intervals [place] Rate: 70 P: -76 NE: 178 QRS: -18 QRSD: 222 T: 89 QT: 562 QTc: 607 Interpretive Statements ELECTRONIC ATRIAL PACEMAKER ELECTRONIC VENTRICULAR PACEMAKER PROLONGED QT INTERVAL CRITICAL TEST RESULT Compared to ECG 01/15/2024 02:40:37 Prolonged QT interval now present Intraventricular conduction delay no longer present Myocardial infarct finding no longer present Electronically Signed On 08-25-2025 20:34:18 CHARTER BOAT OPERATOR by JIN MARC [email or web address]
[2025-08-25 13:06] LABS: Magnesium 2.3 mg/dL (1.7-2.3)
--- NOTE | 2025-08-25 13:12 | PC.NURSE ---
Assumed pt. care.
--- NOTE | 2025-08-25 13:26 | ECG_ITS ---
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
--- NOTE | 2025-08-25 15:41 | P.CONIM_ITS ---
<Statement entered by Jacinto Painter M.D - 08/29/25 12:19> Patient was cared for in conjunction with an advanced practice practitioner.? I reviewed the chart and all pertinent data including imaging, telemetry, and laboratory results.? I discussed the patient in detail with the advanced practice practitioner.? Please see? their documentation for consult note, testing results and agreed upon plan of care for the patient. Providers/Reason For Consult 2 Consulting Physician/Specialty*: Dr. Painter Reason for Consult*: Unstable angina Requesting Physician: Dr. Henderson Primary Care Provider: CARLOS Castellano History of Present Illness History of Present Illness Martha Mccoy is a 50 year old female past medical history of nonischemic CHF, COPD, pacemaker?defibrillator presented to the ER today by ambulance with chest pain that awoke her this morning. She states that the pain was bandlike pressure around her chest that radiated to the back. She noticed she had an episode of nausea and vomiting with this. It was worse with exertion and relieved with rest. She also had diaphoresis with this. She did take nitro that improved her pain. States she has had 2 previous negative coronary angiogram's with most recent being 2 years ago in [place]. Denies any shortness of breath orthopnea at this time. EKG showing AV paced rhythm no acute ST changes or T wave abnormalities. Patient chest pain-free at this time. Vitals are stable. Review of Systems 2 Narrative: Consitutional: denies fever, chills, body aches, or changes in appetite, denies abnormal weight loss Eyes: Denies changes in vision Card: reports chest pain on exertion relieved with rest, denies palpitations, irregular heart rhythm, edema, syncope, shortness of breath, orthopnea, leg pain with exertion Resp: Denies shortness of breath, denies hemoptysis, denies cough GI: denies abdominal pain, denies nausea or vomiting, denies blood in stool : denies blood in urine, denies dysuria Musc: Denies extremity pain, denies limited range of motion or recent injury Skin: Denies rash, lesions, or wounds, denies changes to skin color Neuro: Denies nubmness in extremities, h/a, s/s of stroke Ed: Denies easy bruiding/bleeding All: Denies s/s of allergies Medications/Allergies Home Medications ?Medication ?Instructions ?Recorded ?Confirmed ?Last Taken ?Type nebulizers #1 ea 07/03/21 08/25/25 Unkn own Rx nebulizer and kit (mask/tubing etc) #1 ea 12/04/21 Unknown Rx nitroglycerin 0.4 mg sublingual 0.4 mg sublingual Q5M PRN chest 04/11/22 08/25/25 Unknown Rx tablet pain #30 tabs empagliflozin 10 mg tablet 10 mg PO QAM 08/07/2208/2508/24/25 History (Jardiance) apixaban 5 mg tablet (Eliquis) 5 mg PO BID 09/25/2308/25/25 08:00 History aspirin 81 mg tablet,delayed 81 mg PO DAILY 09/25/23 1 10/26/24 08/25/25 08:00 History release (Adult Low Dose Aspirin) amiodarone 200 mg tablet 200 mg PO DAILY #10 tabs 02/2308/25/25 08/24/25 Rx carvedilol 3.125 mg tablet (Coreg) 3.125 mg PO BID #20 tabs 01/06/24 08/25/25 08/25/25 Rx sacubitril 24 mg-valsartan 26 mg 1 tab PO BID 01/21/24 08/25/25 08/25/25 History tablet (Entresto) albuterol sulfate 2.5 mg/3 mL 2.5 mg (3 mL) inhalation Q4H PRN 10/08/24 08/25/25 Unknown Rx (0.083 %) solution for nebulization bronchospasm #180 mL atorvastatin 20 mg tablet 20 mg PO QDAY 10/08/2408/2508/25/25 History chlorhexidine gluconate 0.12 % 15 ml buccal BID PRN mo uth 10/08/24 08/25/25 Unknown Rx mouthwash (Peridex) infection #473 mL spironolactone 25 mg tablet 12.5 mg PO DAILY 10/08/24 08/25/25 08/25/25 History hydrocortisone 2.5 % topical cream 1 applic [place] DAILY P RN hemorrhoids 12/22/24 08/25/25 Unknown Rx with perineal applicator #30 grams (Anusol-HC) ergocalciferol (vitamin D2) 1,250 50,000 unit PO .week ly #4 caps 02/08/25 08/25/25 08/20/25 Rx mcg (50,000 unit) capsule levomilnacipran 120 mg capsule,24 120 mg PO DAILY #30 caps 02/08/25 08/25/25 08/25/25 Rx hr,extended release (Fetzima) olanzapine 2.5 mg tablet 2.5 mg PO BID #180 tabs 05/2708/25/25 08/25/25 09:00 Rx zonisamide 100 mg capsule 100 mg PO BID #180 caps 05/2708/25/25 08/25/25 Rx ketoconazole 2 % shampoo 1 applic topical .weekly #12 0 mL 03/13/25 08/25/25 Unknown Rx potassium chloride 8 mEq 8 meq PO DAILY #30 caps 04/0308/25/25 08/24/25 Rx capsule,extended release albuterol sulfate 90 mcg/actuation 2 puff inhalation Q ID PRN 05/11/25 08/25/25 Unknown Rx aerosol inhaler (Ventolin HFA) shortness of breath or wheezing #8.5 grams furosemide 40 mg tablet 40 mg PO QAM 06/24/2508/24/25 History lidocaine 5 % topical patch 2 patch topical DAILY #30 ea 06/24/25 08/25/25 08/25/25 09:00 Rx fluticasone furoate 100 1 inh inhalation Q24H #180 e a 07/27/25 08/25/25 08/24/25 Rx mcg-vilanterol 25 mcg/dose inhalation powder (Breo Ellipta) nebulizers #1 ea 08/19/25 08/25/25 Unkn own Rx Allergies Allergy/AdvReac Type Severity Reaction Status Date / Time corn syrup Allergy Mild swelling Verified 07/28/25 13:02 lisinopril Allergy ADR/DOUGLASY-Pa Verified 07/28/25 13:02 lpitations PFSH Acute 2 PFSH: Medical History (Updated 08/25/25 @ 12:47 by STEPHANIE Marino) Implantable cardioverter-defibrillator (ICD) in situ Anxiety with depression External hemorrhoid Cigarette smoker Diverticula, colon Chronic intermittent steroid use Chronic obstructive pulmonary disease, unspecified CHF (congestive heart failure) Gastric reflux Gingivitis Vitamin D deficiency History of pacemaker Surgical History History of colonoscopy with polypectomy 04/09/24 [facility] recheck 2026 History of hysterectomy 06/06/2021 History of implantable cardiac defibrillator (ICD) History of cholecystectomy History of tubal ligation Family History Mother Cancer colon Thyroid disease Grandfather Cancer Paternal - pancreatic Grandmother Cancer Maternal - colon Thyroid disease Maternal and Paternal Grandfather Cancer Maternal - prostate Stroke Paternal Daughter Clotting disorder Antiphospholipid syndrome Father Hyperlipidemia Hypertension Denies family history of Diabetes CAD (coronary artery disease) Chronic kidney disease (CKD) Bleeding disorder Social History Smoking and tobacco/nicotine status: current every day tobacco/nicotine user cigarettes Second hand smoke exposure: Yes Alcohol intake: never Substance/Drug Use: never Caregiver/support person: No Lives independently: Yes Household members: spouse and children Housing: House Marital status: Number of children: 2 service: No Current occupational status: unemployed Current occupational exposures/hazards: No Pets and animals: Yes Do you think of yourself as: Straight/Heterosexual Current gender identity: Female Vitals/I&O/Wt Last Vital Signs Temp 98.7 F 08/25/25 10:44 Pulse 70 08/25/25 14:34 Resp 16 08/25/25 12:22 BP 115/69 08/25/25 14:34 Pulse Ox 93 08/25/25 15:09 O2 Del Method Room Air 08/25/25 15:09 Weight last 48 hrs Weight 229 lb Physical Exam 2 Narrative: General: No apparent distress, healthy appearing, well nourished HENMT: normoceophalic Neck: No carotid bruit bilaterally Muskuloskeletal: Full ROM Lymphatic: no lymphedema noted Respiratory: Normal respiratory effort, clear to auscultation bilaterally throughout all lung wall, no use of accessory muscles Cardio: No JVD, regular rate, regular rhythm, S1 S2 normal, no murmurs, peripheral pulses 2+ radial palpated bilaterally GI: Normal to inspection, nondistended Extremities: Full ROM, normal, normal capillary refill, no cyanosis or edema Neuro: Alert and oriented x4, no focal motor deficits Psych: Affect normal, denies suicidal ideation, mental status grossly normal Skin: No rashes or lesions noted, no wounds Data 08/25/25 10:55 08/25/25 10:55 A&P Assessment and plan 1. CHF (congestive heart failure): 2. Chest pain: Plan: Patient having typical chest pain. Trops are negative. EKG without acute changes. Will proceed with angiogram on Saturday to rule out ACS. Recommend starting aspirin 81 mg daily. Start Lovenox 1 mg/kg BID. Hold Eliquis for upcoming procedure. Will continue to monitor for worsening EKG changes or symptoms. Echo has been scheduled. PDMP PDMP Reviewed: Not Reviewed Consult Attestations 2 Medical Necessity Statement: Deferred to primary. Coding Level of Care Code Acute Code for Chg Fwd Diagnoses CHF (congestive heart failure) I50.9 Chest pain R07.9
--- NOTE | 2025-08-25 15:43 | USCV_ITS ---
Martha Mccoy Age: 50 Gender: F : 1975 Exam Date: 08/25/2025 18:53 Ordering Phys: Mary High NP Technologist: NORMA Exam Location: [facility] Indication: chest pain, History of ischemic CM, CHF, COPD, [place], pacer / defibrillator. BP: 103 / 67 HR: 69 Rhythm: Paced rhythm Technical Quality: Adequate MEASUREMENTS (Male / Female) Normal Values 2D ECHO LV Diastolic Diameter PLAX 7.5 cm 4.2 - 5.9 / 3.9 - 5.3 cm LV Systolic Diameter PLAX 6.7 cm IVS Diastolic Thickness 1.3 cm 0.6 - 1.0 / 0.6 - 0.9 cm IVS Systolic Thickness 1.7 cm LVPW Diastolic Thickness 1.0 cm 0.6 - 1.0 / 0.6 - 0.9 cm LVPW Systolic Thickness 1.0 cm LVOT Diameter 2.2 cm LV Ejection Fraction 2D Teich 21.6 % LV Ejection Fraction MOD 4C 25.1 % LV Ejection Fraction MOD 2C 42.1 % LV Ejection Fraction 2C AL 42.1 % LA Diameter 3.9 cm Aorta at Sinotubular Diameter 2.6 cm IVC Diameter 1.7 cm M-MODE LA Ao Ratio MM 1.7 AV Cusp Separation MM 1.8 cm DOPPLER AV Peak Velocity 124.0 cm/s LVOT Peak Velocity 102.0 cm/s AV Area Cont Eq vti 3.4 cm squared AV Area Cont Eq pk 3.1 cm squared MV Peak Velocity 131.0 cm/s MV Area PHT 4.8 cm squared Mitral E to A Ratio 1.6 TV Peak E Velocity 39.0 cm/s PV Peak Velocity 82.0 cm/s FINDINGS Left Ventricle Left ventricle is severely dilated. LV systolic function is severely reduced with EF of 20-25%. Severe global hypokinesis. Right Ventricle Normal in size and function Right Atrium Normal in size. Pacemaker lead is seen Left Atrium Dilated IA Septum Grossly normal Mitral Valve Structurally normal mitral valve. Mild to moderate mitral regurgitation. Aortic Valve Structurally normal trileaflet aortic valve. No significant stenosis. Tricuspid Valve Insufficient TR jet to calculate RVPS Pulmonic Valve Not well visualized Pericardium Normal Aorta Normal in size IVC Appears to be normal CONCLUSIONS LV systolic function is severely reduced with EF of 20-25% Left atrial dilation Mild to moderate mitral regurgitation Jacinto Painter MD (Electronically Signed) Final Date: 27 August 2025 09:03 S
--- NOTE | 2025-08-25 16:41 | ECG_ITS ---
[facility] Test Date: 2025-08-25 Pat Name: Martha Mccoy Department: Room: 253 Gender: Female Title I Coordinator: : 1975 Requested By: Victor Manuel Cai Order Number: [id number] Shwetha MD: JIN MARC Measurements Intervals [place] Rate: 70 P: -79 NM: 174 QRS: 25 QRSD: 218 T: 145 QT: 486 QTc: 525 Interpretive Statements ELECTRONIC ATRIAL PACEMAKER ELECTRONIC VENTRICULAR PACEMAKER ABNORMAL RHYTHM ECG Compared to ECG 08/25/2025 13:26:46 Prolonged QT interval no longer present Electronically Signed On 08-25-2025 20:33:15 DRINK WAITER by JIN MARC [email or web address]
[2025-08-25 17:13] LABS: Troponin 5 6HR 14.12 ng/L (0-10)
[2025-08-25 17:14] LABS: Troponin 5 6HR Delta -1.88 ng/L (0-12)
--- NOTE | 2025-08-25 19:20 | PM.HP ---
Providers/Chief Complaint Admitting Physician: Patircio Vazquez MD Primary Care Provider: JENNY Castellano-Alejandra Chief Complaint: chest pain N/V History of Present Illness Martha Mccoy is a 50 year old female history congestive heart failure COPD, previous SC, coronary artery disease pacemaker/defibrillator came to the ED via ambulance for chest pain. Discussed with ED doctor. Bilateral with radiation to the back. Cardiology has been consulted, Patient is known history of nonischemic cardiomyopathy she has had 2 prior negative coronary angiograms in previous one 2 years ago. no acute changes on EKG negative troponin, typical chest pain on exam, however. Start anticoagulation with Lovenox, plan for angiogram Saturday per cardiology. Medications/Allergies Home Medications ?Medication ?Instructions ?Recorded ?Confirmed ?Last Taken ?Type nebulizers #1 ea 07/03/21 08/25/25 Unknown Rx nebulizer and kit (mask/tubing etc) #1 ea 12/04/21 08/25/25 Unknown Rx nitroglycerin 0.4 mg sublingual 0.4 mg sublingual Q5M PRN chest 04/11/22 08/25/25 Unknown Rx tablet pain #30 tabs empagliflozin 10 mg tablet 10 mg PO QAM 08/07/22 08/25/25 08/24/25 History (Jardiance) apixaban 5 mg tablet (Eliquis) 5 mg PO BID 09/25/23 08/25/25 08/25/25 08:00 History aspirin 81 mg tablet,delayed 81 mg PO DAILY 09/25/23 08/25/25 08/25/25 08:00 History release (Adult Low Dose Aspirin) amiodarone 200 mg tablet 200 mg PO DAILY #10 tabs 01/06/24 08/25/25 08/24/25 Rx carvedilol 3.125 mg tablet (Coreg) 3.125 mg PO BID #20 tabs 01/06/24 08/25/25 08/25/25 Rx sacubitril 24 mg-valsartan 26 mg 1 tab PO BID 01/21/24 08/25/25 08/25/25 History tablet (Entresto) albuterol sulfate 2.5 mg/3 mL 2.5 mg (3 mL) inhalation Q4H PRN 10/08/24 08/25/25 Unknown Rx (0.083 %) solution for nebulization bronchospasm #180 mL atorvastatin 20 mg tablet 20 mg PO QDAY 10/08/24 08/25/25 08/25/25 History chlorhexidine gluconate 0.12 % 15 ml buccal BID PRN mouth 10/08/24 08/25/25 Unknown Rx mouthwash (Peridex) infection #473 mL spironolactone 25 mg tablet 12.5 mg PO DAILY 10/08/24 08/25/25 08/25/25 History hydrocortisone 2.5 % topical cream 1 applic [place] DAILY PRN hemorrhoids 12/22/24 08/25/25 Unknown Rx with perineal applicator #30 grams (Anusol-HC) ergocalciferol (vitamin D2) 1,250 50,000 unit PO .weekly #4 caps 02/08/25 08/25/25 08/20/25 Rx mcg (50,000 unit) capsule levomilnacipran 120 mg capsule,24 120 mg PO DAILY #30 caps 02/08/25 08/25/25 08/25/25 Rx hr,extended release (Fetzima) olanzapine 2.5 mg tablet 2.5 mg PO BID #180 tabs 02/08/25 08/25/25 08/25/25 09:00 Rx zonisamide 100 mg capsule 100 mg PO BID #180 caps 02/08/25 08/25/25 08/25/25 Rx ketoconazole 2 % shampoo 1 applic topical .weekly #120 mL 03/13/25 08/25/25 Unknown Rx potassium chloride 8 mEq 8 meq PO DAILY #30 caps 04/23/25 08/25/25 08/24/25 Rx capsule,extended release albuterol sulfate 90 mcg/actuation 2 puff inhalation QID PRN 05/11/25 08/25/25 Unknown Rx aerosol inhaler (Ventolin HFA) shortness of breath or wheezing #8.5 grams furosemide 40 mg tablet 40 mg PO QAM 06/24/25 08/25/25 08/24/25 History lidocaine 5 % topical patch 2 patch topical DAILY #30 ea 06/24/25 08/25/25 08/25/25 09:00 Rx fluticasone furoate 100 1 inh inhalation Q24H #180 ea 07/27/25 08/25/25 08/24/25 Rx mcg-vilanterol 25 mcg/dose inhalation powder (Breo Ellipta) nebulizers #1 ea 08/19/25 08/25/25 Unknown Rx Allergies Allergy/AdvReac Type Severity Reaction Status Date / Time corn syrup Allergy Mild swelling Verified 07/28/25 13:02 lisinopril Allergy ADR/ALGY-Pa Verified 07/28/25 13:02 lpitations PFSH Acute PFSH: Medical History (Updated 08/25/25 @ 19:27 by Patricio Vazquez MD) Implantable cardioverter-defibrillator (ICD) in situ Anxiety with depression External hemorrhoid Cigarette smoker Diverticula, colon Chronic intermittent steroid use Chronic obstructive pulmonary disease, unspecified CHF (congestive heart failure) Gastric reflux Gingivitis Vitamin D deficiency History of pacemaker Surgical History History of colonoscopy with polypectomy 04/09/24 [facility] recheck 2026 History of hysterectomy 06/06/2021 History of implantable cardiac defibrillator (ICD) History of cholecystectomy History of tubal ligation Family History Mother Cancer colon Thyroid disease Grandfather Cancer Paternal - pancreatic Grandmother Cancer Maternal - colon Thyroid disease Maternal and Paternal Grandfather Cancer Maternal - prostate Stroke Paternal Daughter Clotting disorder Antiphospholipid syndrome Father Hyperlipidemia Hypertension Denies family history of Diabetes CAD (coronary artery disease) Chronic kidney disease (CKD) Bleeding disorder Social History Smoking and tobacco/nicotine status: current every day tobacco/nicotine user cigarettes Second hand smoke exposure: Yes Alcohol intake: never Substance/Drug Use: never Caregiver/support person: No Lives independently: Yes Household members: spouse and children Housing: House Marital status: Number of children: 2 service: No Current occupational status: unemployed Current occupational exposures/hazards: No Pets and animals: Yes Do you think of yourself as: Straight/Heterosexual Current gender identity: Female Vitals/I&O/Wt Last Vital Signs Temp 97.8 F 08/25/25 16:48 Pulse 67 08/25/25 16:48 Resp 14 08/25/25 16:48 BP 103/67 08/25/25 16:48 Pulse Ox 94 08/25/25 16:48 O2 Del Method Room Air 08/25/25 16:48 08/25/25 08/25/25 08/25/25 06:59 14:59 22:59 Intake Total 360 / 360 Balance 360 / 360 Weight last 48 hrs Weight 103.4 kg Weight 103.873 kg Physical Exam Const: COMMON NORMALS: patient oriented x3 and alert GENERAL APPEARANCE: cooperative ORIENTATION/CONSCIOUSNESS: Yes awake HENMT: COMMON NORMALS: oropharynx normal Neck/C-Spine: COMMON NORMALS: no JVD Resp: COMMON NORMALS: normal respiratory effort and clear to auscultation bilaterally AUSCULTATION: clear to auscultation bilaterally Cardio: COMMON NORMALS: no JVD, regular rhythm, S1 normal heart sound present, S2 normal heart sound present and No murmurs present (Cardio) RHYTHM: regular rhythm HEART SOUNDS: S1 normal heart sound present and S2 normal heart sound present GI: COMMON NORMALS: Normal to inspection, nondistended, normoactive bowel sounds present, Soft to palpation and non-tender PALPATION: Yes Soft to palpation Extremity: COMMON NORMALS: no joint enlargement and no pedal edema Neuro: COMMON NORMALS: patient oriented x3 and moves all extremities SENSORIUM/ORIENTATION: Yes alert Skin: COMMON NORMALS: no rashes or lesions noted GENERAL SKIN EXAM: no rashes or lesions noted Data 08/25/25 10:55 08/25/25 10:55 A&P Assessment and plan 1. Unstable angina: Plan: Unstable angina Nonischemic cardiomyopathy Atrial fibrillation COPD Admitted for acute chest pain, cardiac source not ruled out due to comorbidities ? Agree with cardiology plan, plan for angiogram, optimize heart failure medications, Medications reviewed. Resume home amiodarone 200 mg daily Eliquis held in place of Lovenox continue daily aspirin 81 mg high intensity statin atorvastatin 20 mg daily continue maintenance therapy for COPD with Breo Ellipta, patient is not currently decompensating Continue maintenance dose of furosemide for euvolemia sublingual nitroglycerin as needed for chest pain Expected patient to have an overnight more than 2 midnights for cardiac monitoring evaluating chest pain PDMP PDMP Reviewed: Not Reviewed Attestations Medical Necessity Statement*: Patient with acute unstable angina with risk factors severe cardiomyopathy, based on presenting symptoms acute ischemic blockage is not ruled out, plan for coronary intervention on 08/27/2025 Coding Level of Care Code 49570 Diagnoses Unstable angina I20.0
--- OUTSIDE RECORDS SUMMARY | 2025-08-25 20:38 | XMS_ITS | Encounter Summary ---
Author Organization [facility] Address [address] [place] [address] Care Team Providers Care Automatic I Threading Machine Feeder Name Role Phone Unavailable Primary Care Provider Unavailabl e Encounter Details Date Type Department Care Team (Late st Contact Info) Description 01/10/2024 Telephone [facility] [address] [facility] [address] [place] [phone] Victor Manuel Garay MD [address] [facility] [address] [place] [phone] Social History Tobacco Use Types Packs/Day [...] Dr Garay Person Calling: Martha Phone #: [phone] or cell # [phone] Relationship to patient: self Pt was scheduled for a Consult yesterday, thought it was today. She called for directions to the clinic. She is new to [facility], her Business Communications Instructor in [facility] will not give her meds and she is out of Eliquis and she has only 2 days left of amiodarone and carvedilol. -Lyndsay Quigley documented in this encounter Plan of Treatment Upcoming Encounters Date Type Department Care Team (Late st Contact Info) Description 12/06/2025 2:40 PM CDT Office Visit [facility] [address] [facility] [address] [place] [phone] Ronni Garcia, SLAG EXPANDER [address] [facility] [address] [place] [phone] documented as of this encounter Visit Diagnoses Not on filedocumented in this encounter
--- OUTSIDE RECORDS SUMMARY | 2025-08-25 20:38 | XMS_ITS | Clinical Summary ---
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 Chronic systolic congestive heart failure 2024 Biventricular ICD (implantab le cardioverter-defibrillator) in place 10/07/2024 A-fib 10/07/2024 Resolved Problems Problem Noted Date Diagnosed Date Resolved Date ASHD (arteriosclerotic heart disease) 10/07/2024 03/18/2025 Encounters Date Type Department Care Team Description 08/17/2025 External Device Data ST[facility] ABSTRACTION Provider, Abstract 07/15/2025 Abstract [place] [address] [place] [phone] Provider, Abstract 07/13/2025 External Device Data STL ABSTRACTION Provider, Abstract 07/06/2025 10:40 AM [facility] Office Visit [place] [address] [place] [phone] Joan Romano, JENNY HFrEF (heart failure with reduced ejection fraction) (CMS/HCC) (Primary Dx); Biventricular ICD (implantable cardioverter-defibril lator) in place; 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; Paroxysmal atrial fibrillation (CMS/HCC) 06/21/2025 8:00 AM CDT Procedure visit [place] [address] [facility] [address] [place] [phone] Congestive heart failure, unspecified HF chronicity, unspecified heart failure type (CMS/HCC) (Primary Dx); Automatic implantable cardioverter-defibril lator in situ 06/21/2025 Telephone [place] [address] [facility] [address] [place] [phone] Victor Manuel Garay MD Follow Up 06/10/2025 Orders Only [place] [address] [facility] [address] [place] [phone] Janae Farrar, RN ASHD (arteriosclerotic heart [...] Comments Blood Pressure 102/62 07/06/2025 10:38 AM [facility] Pulse 72 07/06/2025 10:38 AM [facility] Temperature 36.1 C (96.9 F) 04/14/2025 5:45 PM CDT Respiratory Rate 19 04/14/2025 5:45 PM CDT Oxygen Saturation 96% 04/14/2025 5:45 PM CDT Inhaled Oxygen Concentration - - Weight 101 kg (222 lb 9.6 oz) 07/06/2025 10:38 A M [facility] Height 175.3 cm (5' 9 ) 07/06/2025 10:38 AM [facility] Body Mass Index 32.87 07/06/2025 10:38 AM [facility] Plan of Treatment Upcoming Encounters Date Type Department Care Team (Late st Contact Info) Description 12/06/2025 2:40 PM CDT Office Visit [facility] [address] [facility] [address] [place] [phone] Ronni Garcia, [facility] [address] [facility] [address] [place] [phone] Health Maintenance Due Date Last Done [...] Associated Diagnosis Comments EKG 12-LEAD Routine 07/06/2025 CA INTERROG EVAL, REMOTE, UP TO 90 DAYS, PACER/DEFIB WITHIN GLOBAL Routine 06/21/2025 9:35 AM CDT Congestive heart failure, unspecified HF chronicity, unspecified heart failure type (CMS/HCC) Automatic implantable cardioverter-defibri llator in situ CA INTERROG EVAL, REMOTE, UP TO 90 DAYS,CARDVERT/DEFIB WITHIN GLOBAL Routine 06/21/2025 9:35 AM CDT Congestive heart failure, unspecified HF chronicity, unspecified heart failure type (CMS/HCC) Automatic implantable cardioverter-defibri llator in situ from Last 3 Months Results * (ABNORMAL) EKG 12-LEAD (07/06/2025) us Joan Romano ARCHITECTURE INSTRUCTOR ECG ORDERABLES Final Resu lt [facility] [id number] [address] [facility] [address] [place] [phone], [place] [phone] * CA INTERROG EVAL, REMOTE, UP TO 90 DAYS,CARDVERT/DEFIB WITHIN GLOBAL, CA INTERROG EVAL, REMOTE, UP TO 90 DAYS, [...] department from Last 3 Months Insurance [place] [place] [address] DUAL COMPLETE PPO [facility] [id number]
--- OUTSIDE RECORDS SUMMARY | 2025-08-25 20:38 | XMS_ITS | Encounter Summary ---
Author Organization [facility] Address [address] [place] [address] Care Team Providers Care Cylinder Tester Name Role Phone Unavailable Primary Care Provider [...] Description 12/06/2025 2:40 PM CDT Office Visit [facility] [address] [place] [phone] Ronni Garcia, SPARK PLUG TESTER [address] [place] [phone] documented as of this encounter Visit Diagnoses Not on filedocumented in this encounter
[2025-08-25] MEDS: HYDROcodone-acetaminophen 5-325 mg Tablet 1 TAB PO (23:39)
[2025-08-26] VITALS (15 sets, daily range): BP systolic 93–108; BP diastolic 57–72; PULSE 69–78; RESP 16–18; TEMP 36.4–36.8; O2SAT 91–96
[2025-08-26] MEDS: ATORVASTATIN 20 MG TABLET PO (04:19)
[2025-08-26] MEDS: HYDROcodone-acetaminophen 5-325 mg Tablet 1 TAB PO ×3 (04:19→22:52)
[2025-08-26 05:00] LABS: Hematocrit 45.0 % (36-47); Hemoglobin 14.90 g/dL (11.27-16.99); Mean Corpuscular HGB Conc 33.1 g/dL (30-55); Mean Corpuscular Hemoglobin 31.0 pg (27-33); Mean Corpuscular Volume 93.6 fl (85-98); Nucleated Red Blood Cells % 0 %; Platelet Count 243 10^3/cmm (157-399); Red Blood Count 4.81 10^6/uL (3.85-5.65); White Blood Count 9.14 10^3/uL (3.29-11.43)
[2025-08-26 05:27] LABS: Alanine Aminotransferase 16 U/L (0-33); Albumin Level 3.9 g/dL (3.5-5.2); Alkaline Phosphatase 102 U/L (35-105); Anion Gap 10.2 (5-19); Aspartate Amino Transferase 25 U/L (0-32); Blood Urea Nitrogen 6 mg/dL (6-20); Calcium 8.2 mg/dL (8.5-10.5); Carbon Dioxide 29 mmol/L (22-29); Chloride 102 mmol/L (98-107); Globulin 2.2 g/dL (1.3-4.6); Glucose 116 mg/dL (65-115); Magnesium 2.2 mg/dL (1.7-2.3); Osmolality Calculated 285 mOsm/kg (285-295); Potassium 3.2 mmol/L (3.5-5.1); Sodium 138 mmol/L (136-145); Total Protein 6.1 g/dL (6.6-8.7)
[2025-08-26 05:31] LABS: NT Pro B Type Natriuretic Pept 3413 pg/mL (0-125)
--- NOTE | 2025-08-26 10:32 | P.PN_ITS ---
Subjective 2 Subjective: Martha Mccoy is a 50 year old female history congestive heart failure COPD, previous ID, coronary artery disease pacemaker/defibrillator came to the ED via ambulance for chest pain. Discussed with ED doctor. Bilateral with radiation to the back. Cardiology has been consulted, Patient is known history of nonischemic cardiomyopathy she has had 2 prior negative coronary angiograms in previous one 2 years ago. no acute changes on EKG negative troponin, typical chest pain on exam, however. Start anticoagulation with Lovenox, plan for angiogram Saturday per cardiology. 08/26/25: Patient resting in bed at time of interview. Family at bedside. She reports that her chest pain has improved since admission but has a persistent headache that was 9/10 last night refractory to tylenol. Since 299 ibuprofen this is improved to 2/10. Patient is awaiting heart cath for 08/27/25. Will continue to monitor BNP and troponin. Potassium was slightly low today at 3.2. Will replete and monitor electrolytes. Vitals/I&O/Wt Last Vital Signs Temp 97.7 F 08/26/25 08:00 Pulse 70 08/26/25 08:09 Resp 16 08/26/25 08:09 BP 98/63 08/26/25 08:00 Pulse Ox 92 08/26/25 08:09 O2 Del Method Room Air 08/26/25 08:09 08/25/25 08/26/25 08/26/25 22:59 06:59 14:59 Intake Total 360 / 360 480 / 480 Balance 360 / 360 480 / 480 Weight last 48 hrs Weight 102.965 kg Weight 103.4 kg Weight 103.873 kg Physical Exam 2 Const: COMMON NORMALS: patient oriented x3 and alert GENERAL APPEARANCE: c ooperative ORIENTATION/CONSCIOUSNESS: Yes awake HENMT: COMMON NORMALS: oropharynx normal Neck/C-Spine: COMMON NORMALS: no JVD Resp: COMMON NORMALS: normal respiratory effort and clear to auscultation bilaterally AUSCULTATION: clear to auscultation bilaterally Cardio: COMMON NORMALS: no JVD, regular rhythm, S1 normal heart sound present, S2 normal heart sound present and No murmurs present (Cardio) RHYTHM: regular rhythm HEART SOUNDS: S1 normal heart sound present and S2 normal heart sound present GI: COMMON NORMALS: Normal to inspection, nondistended, normoactive bowel sounds present, Soft to palpation and non-tender PALPATION: Yes Soft to palpation Extremity: COMMON NORMALS: no joint enlargement and no pedal edema Neuro: COMMON NORMALS: patient oriented x3 and moves all extremities S ENSORIUM/ORIENTATION: Yes alert Skin: COMMON NORMALS: no rashes or lesions noted GENERAL SKIN EXAM: no rashes or lesions noted Data 08/26/25 04:42 08/26/25 04:42 A&P Assessment and plan 1. Unstable angina: With nonischemic cardiomyopathy Admitted for acute chest pain, cardiac source not ruled out due to comorbidities Cardiology consulted, recommendations appreciated Optimization of heart failure medications 08/27/2025 angiogram planning Nitroglycerin as needed for chest pain Pain management 2. Headache: Started last night 05/12 rating Not hypertensive, BP 98/63 this morning. No nausea. Refractory to Tylenol, ibuprofen 400 mg given once Improved to 10/12 Monitoring 3. Hypokalemia: Potassium 3.2 Replete 40 mEq p.o. EKG Purification Supervisor electrolytes 4. Chronic obstructive pulmonary disease, unspecified: Controlled Continue home Breo Ellipta Pulse oximetry Submental O2 as needed to keep saturations greater than 92% 5. Atrial fibrillation: Resume home amiodarone 200 mg daily Eliquis held in place of Lovenox Continue daily aspirin 81 mg high intensity statin atorvastatin 20 mg daily Telemetry ICD pacemaker in place 6. Elevated brain natriuretic peptide (BNP) level: Slight elevation; initial 2935, today 3413 Continue maintenance dose of furosemide Potassium monitoring as above BNP monitoring PDMP PDMP Reviewed: Not Reviewed Attestations 2 Medical Necessity Statement*: Patient not expected to cross an additional 2 midnights. Patient expected to have heart cath on 08/27/2025 and discharged to home if there is no significant intervention. Diagnoses Unstable angina I20.0 Headache R51.9 Hypokalemia E87.6 Chronic obstructive pulmonary disease, unspecified J44.9 Atrial fibrillation I48.91 Elevated brain natriuretic peptide (BNP) level R79.89
[2025-08-27] VITALS (27 sets, daily range): BP systolic 82–126; BP diastolic 48–77; PULSE 60–73; RESP 15–70; TEMP 36.4–37.1; O2SAT 93–98
[2025-08-27] MEDS: ATORVASTATIN 20 MG TABLET PO (04:50)
[2025-08-27 05:18] LABS: Hematocrit 43.9 % (36-47); Hemoglobin 14.60 g/dL (11.27-16.99); Mean Corpuscular HGB Conc 33.3 g/dL (30-55); Mean Corpuscular Hemoglobin 30.9 pg (27-33); Mean Corpuscular Volume 92.8 fl (85-98); Nucleated Red Blood Cells % 0 %; Platelet Count 212 10^3/cmm (157-399); Red Blood Count 4.73 10^6/uL (3.85-5.65); White Blood Count 9.19 10^3/uL (3.29-11.43)
[2025-08-27 05:33] LABS: Anion Gap 14.7 (5-19); Blood Urea Nitrogen 8 mg/dL (6-20); Calcium 8.8 mg/dL (8.5-10.5); Carbon Dioxide 27 mmol/L (22-29); Chloride 100 mmol/L (98-107); Glucose 106 mg/dL (65-115); Osmolality Calculated 285 mOsm/kg (285-295); Potassium 3.7 mmol/L (3.5-5.1); Sodium 138 mmol/L (136-145); Troponin T (5th) Once 18 ng/L (0-10)
[2025-08-27 05:43] LABS: NT Pro B Type Natriuretic Pept 3200 pg/mL (0-125)
--- NOTE | 2025-08-27 06:25 | XACV_ITS ---
Exam Room: [facility] Ht: 175 cm Wt: 105 kg BSA: 2.30 m2 Gender: Female : 1975 Any Known Allergies: Other Exam Priority: Routine Procedure(s): Procedure Description: Diagnostic procedure Procedure Description: Left Heart Catheterization Procedure Description: Left ventriculography Procedure Description: Coronary Angiography Diagnostic Cath Status: Urgent Diagnostic Findings * INDICATION: Worsening angina. * No significant disease noted in the Left Main, Left Anterior Descending, Right, or Circumflex coronary arteries. * Coronary angiography shows right dominance. Conclusions 1. No significant disease noted in the Left Main, Left Anterior Descending, Right, or Circumflex coronary arteries. 2. Non-ischemic cardiomyopathy. 3. Severe left ventricular systolic dysfunction. Ejection fraction of 15%. Recommendations * Guideline directed heart failure therapy. * Outpatient cardiology follow up in 2 weeks. Interventional RX Recommendation: medical therapy and/or counseling Diagnostic RX Recommendation: medical therapy and/or counseling Ventriculography Ejection Fraction: 15.0 % Pressures Phase:Rest AO : 88 / 67 ( 78 ) @ 8:37:00 AM 96 / 46 ( 63 ) @ 8:44:00 AM 97 / 46 ( 64 ) @ 8:44:00 AM LV : 101 / / @ 8:43:00 AM 100 / 10 / 28 @ 8:44:00 AM 100 / 7 / @ 8:44:00 AM Valves Phase:DefaultPhase AV : 5.0 @ 8:54:07 AM AV Mean Gradient: 12.0 @ 8:54:07 AM Clinical Evaluation EBL: 5mL-10mL Procedural Details Procedure Consent Obtained. Pre-Procedure Time Out. Identified patient by full name and date of as verbalized by the patient/guarantor. Does the consent match the physician's order: Yes. Accurate & Complete Informed Consent: Yes. Inpatient/Outpatient History & Physical on Chart: Yes. If H&P is completed, is and addenduem needed: No. Visualize and Verify Site with Patient/Guarantor: N/A. Relevant Radiology Images available: Yes. The risks, benefits, and alternatives of sedation and/or procedure were discussed by physician. The patient agrees to continue. Procedure started. [facility] Clinical Fraility Score: 3: Managing Well. Consumer Loan Underwriter Indications: Worsening Angina. Chest Pain Symptom Assessment: Typical Angina Symptoms. Cardiovascular Instability: No. Correct patient, site and procedure confirmed by cath team. PERRLA. Strong, equal hand geodetic advisor bilaterally. Lungs clear x 5 lobes. IV Site on Arrival: 20 gauge in the left anticubital. IV Fluids: 0.9% NaCl at KVO. 0 mL infused prior to energy systems laboratory director. Pre Procedural Pulses: bilateral dorsalis pedis was Doppled. Pre Procedural Pulses: bilateral posterior tibial was Doppled. Oxygen started at 2liters/min via nasal canula. bilateral groins was prepped with chloroprep then draped in the usual sterile fashion. Physician notified. Baseline sample Acquired. HR: 73 BPM. Patient's daughter in CPRU room #4. Dr. Painter will update at the completion of the procedure. Equipment: 6F - Femoral. Cardiac Cath Pack. ACIST Manifold Kit Model BT 2000. Heparinized Saline (2 units/mL), 1000 mL bag. Kit, Micropuncture. Physician arrived. Physician scrubbed in. Immediate Pre-Procedure Time Out. Correct Patient: Yes; Correct Procedure: Yes; Correct Site: Yes; Correct Patient Position: Yes; Correct Supplies: Yes; Dried Flammable Prep: Yes; Blood Products Available: No. Lidocaine 1% infiltrated to the right groin. Arterial access obtained with micropuncture set. Lidocaine 1% infiltrated to the right groin. A 5 ukrainian JL4 catheter in over wire. Multiple views taken of left coronary artery. Catheter removed over the standard wire. A 5 ukrainian JR4 catheter in over wire. Multiple views taken of right coronary artery. Catheter removed over the standard wire. A 5 ukrainian Angled Pig catheter in over wire. EDP Sample taken: LV 101/9,28; HR: 70 BPM; SpO2: 97%. LV gram performed in VEGA @ 10 mL/second for a total of 30 mL. EDP Sample taken: LV 100/10,28; HR: 60 BPM; SpO2: 97%. Pullback taken: LV 100/7,27; AO 96/46(63); Mean: 12mmHg, Peak to Peak: 5mmHg, SEP: 19sec/min; HR: 71 BPM; SpO2: 97%. Catheter removed over the standard wire. A Right femoral angiogram was performed to determine safe placement of closure device. A Angio-Seal VIP ([facility]) was successful obtaining hemostatsis at the Right Femoral artery insertion site. Angioseal placed without complications. No signs or symptoms of hematoma noted. Sterile dressing applied per usual sterile fashion. LOT # [id number] Exp. . Dr. Painter scrubbed out. Post Procedure: Pulses reassessed and unchanged. PERRLA. Strong, equal hand geodetic advisor bilaterally. No VTE prophylaxis required. Medication's Wasted: Lidocaine 1% = 12 mL. Medication's Wasted: Heparin = 1000 units. Medication's Wasted: Other = Fentanyl 50 mcg. Total IV fluids: 25 mL. Post-op diagnosis: non ischemic cardiomyopathy, non-obstructive CAD. Complications: none. Estimated blood loss: 5mL-10mL. Responsiveness - Normal response to verbal stimuli; alert and oriented, PERRLA. Airway - Unaffected, no intervention required; spontaneous ventilation. Circulation: W/N/L, pulses unchanged. Nausea/Vomiting: No. Vital chart was stopped. Procedure completed. Patient transferred by bed to 1st floor. Access Site Site: Right Femoral artery Sheath Size: 6 Fr Hemostasis Method: Angio-Seal VIP ([facility]) Hemostasis Success: Successful Procedure Medications Start: 8:25 AM Stop: 8:25 AM Medication: Versed Amount: 1 mg Route: I.V. Start: 8:25 AM Stop: 8:25 AM Medication: Fentanyl Amount: 25 mcg Start: 8:32 AM Stop: 8:32 AM Medication: Versed Amount: 1 mg Route: I.V. Start: 8:35 AM Stop: 8:35 AM Medication: Fentanyl Amount: 25 mcg I, the attending physician, have reviewed and verified all procedure medications. Yes, all medications given per verbal order History/Risk Factors Hypertension: No Dyslipidemia: No Peripheral Arterial Disease (PAD): No Myocardial Infarction (PA): Yes Obesity: No Renal Disease: No Tobacco Use: Current/Recent(w/in 1 year) Prior Interventions PCI: No CABG: No Valve Surgery: No Report Signatures Finalized by Jacinto Painter MD on 09/11/2025 12:53 PM
--- NOTE | 2025-08-27 08:25 | W.PM.OPSUD ---
Surgery/Procedure H&P Update DATE OF PROCEDURE: August 27, 2025 DATE H&P PERFORMED: 08/25/25 H&P UPDATE INFORMATION: I have reviewed H&P completed within last 30 days, I have examined patient prior to procedure and No changes to prior documentation PREOP DIAGNOSIS: Worsening angina PRIMARY INDICATION FOR PROCEDURE: Worsening angina PLANNED PROCEDURE: Left heart cath with possible percutaneous coronary intervention PATIENT REASSESSED PRIOR TO SEDATION, WITH NO CHANGE NOTED: Yes PHYSICAL EXAM: alert, oriented x 3, clear to auscultation bilaterally and regular rate & rhythm AIRWAY EVAL/ANESTHESIA PLAN: normal airway, ASA III, Local Anesthesia, Risks, benefits & alternatives of sedation and/or procedure discussed and Patient agrees to continue as planned ADDITIONAL INFORMATION: Moderate sedation
--- NOTE | 2025-08-27 09:04 | PM.PROC ---
Procedure Note: Date of procedure: 08/27/25 Pre-procedure diagnosis: Worsening/ unstable angina Post-procedure diagnosis: other (Patent coronary arteries) Procedure: Coronary arteries are patent. Severely reduced LV function. Guideline directed heart failure therapy Performing Provider: Jacinto Painter Complications: None Condition: stable Disposition: floor Coding Level of Care Code Acute Code for [facility]
--- NOTE | 2025-08-27 12:02 | PC.SOCIAL ---
IMM updated Updated pt on IMM. No questions voiced. Provided pt a copy. Initialed, dated & timed a copy & placed in chart.
--- NOTE | 2025-08-27 13:15 | P.DS_ITS ---
Discharge Providers Date of Admission: 08/25/25 15:58 Date of Discharge: August 27, 2025 Attending Provider at Admission: Patricio Vazquez MD Attending Provider at Discharge: MEDINA Wright, LOGISTICS VICE PRESIDENT Consults: Cardiology Primary Care Provider: CARLOS Castellano Diagnoses at Discharge Discharge Diagnosis 1. Unstable angina: 2. Headache: 3. Hypokalemia: 4. Chronic obstructive pulmonary disease, unspecified COPD type: 5. Atrial fibrillation: 6. Elevated brain natriuretic peptide (BNP) level: Reason for Visit Reason for Visit: chest pain N/V Brief History: 1. Unstable angina: With nonischemic cardiomyopathy Admitted for acute chest pain, cardiac source not ruled out due to comorbidities Optimization of heart failure medications 08/27/2025 angiogram planning Nitroglycerin as needed for chest pain Pain management Cardiology consulted, recommendations appreciated: 08/27/25 PCI; coronary arteries patent, severely reduced LV function.? Patient will maintain current medication regimen and follow-up with cardiology outpatient 2. Headache: Started last night 05/12 rating Not hypertensive, BP 98/63 this morning. No nausea. Refractory to Tylenol, ibuprofen 400 mg given once Improved 3. Hypokalemia: Potassium 3.2 corrected to 3.7 prior to DC Repleted 40 mEq p.o. EKG Manager Investigations electrolytes 4. Chronic obstructive pulmonary disease, unspecified: Controlled Continue home Breo Ellipta Pulse oximetry Submental O2 as needed to keep saturations greater than 92% 5. Atrial fibrillation: Resume home amiodarone 200 mg daily Eliquis held in place of Lovenox Continue daily aspirin 81 mg high intensity statin atorvastatin 20 mg daily Telemetry while inpatient ICD pacemaker in place 6. Elevated brain natriuretic peptide (BNP) level: Slight elevation; initial 2935, today 3413 Continue maintenance dose of furosemide BNP and potassium monitoring as above Hospital Course Hospital Course Martha Mccoy is a 50 year old female history congestive heart failure COPD, previous HI, coronary artery disease pacemaker/defibrillator came to the ED via ambulance for chest pain. Discussed with ED doctor. Bilateral with radiation to the back. Cardiology has been consulted, Patient is known history of nonischemic cardiomyopathy she has had 2 prior negative coronary angiograms in previous one 2 years ago. no acute changes on EKG negative troponin, typical chest pain on exam, however. Start anticoagulation with Lovenox, plan for angiogram Saturday per cardiology. 12/25/25: Patient resting in bed at time of interview. Family at bedside. She reports that her chest pain has improved since admission but has a persistent headache that was 9/10 last night refractory to tylenol. Since 030 ibuprofen this is improved to 2/10. Patient is awaiting heart cath for 08/27/25. Will continue to monitor BNP and troponin. Potassium was slightly low today at 3.2. Will replete and monitor electrolytes. 08/27/25: Cardiology was consulted and patient underwent PCI today. ?Report ?coronary arteries are patent. Severely reduced LV function? ----patient okay to discharge from cardiology standpoint.? She will follow-up outpatient in 2 weeks.? No medication adjustments for this encounter at discharge.? Case management and RN notified. Physical Exam Const: COMMON NORMALS: patient oriented x3 and alert GENERAL APPEARANCE: cooperative ORIENTATION/CONSCIOUSNESS: Yes awake HENMT: COMMON NORMALS: oropharynx normal Neck/C-Spine: COMMON NORMALS: no JVD Resp: COMMON NORMALS: normal respiratory effort and clear to auscultation bilaterally AUSCULTATION: clear to auscultation bilaterally Cardio: COMMON NORMALS: no JVD, regular rhythm, S1 normal heart sound present, S2 normal heart sound present and No murmurs present (Cardio) RHYTHM: regular rhythm HEART SOUNDS: S1 normal heart sound present and S2 normal heart sound present GI: COMMON NORMALS: Normal to inspection, nondistended, normoactive bowel sounds present, Soft to palpation and non-tender PALPATION: Yes Soft to palpation Extremity: COMMON NORMALS: no joint enlargement and no pedal edema Neuro: COMMON NORMALS: patient oriented x3 and moves all extremities SENSORIUM/ORIENTATION: Yes alert Skin: COMMON NORMALS: no rashes or lesions noted GENERAL SKIN EXAM: no rashes or lesions noted Discharge Data Studies Completed and Pending Completed Studies During Hospitalization Category Date Time Status XR chest 1V portable [id number] Stat Exams 08/25/25 10:53 Completed CV. 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 Laboratory Results WBC 9.19 10^3/uL (3.29-11.43) 08/27/25 04:41 RBC 4.73 10^6/uL (3.85-5.65) 08/27/25 04:41 Hgb 14.60 g/dL (11.27-16.99) 08/27/25 04:41 Hct 43.9 % (36-47) 08/27/25 04:41 MCV 92.8 fl (85-98) 08/27/25 04:41 MCH 30.9 pg (27-33) 08/27/25 04:41 MCHC 33.3 g/dL (30-55) 08/27/25 04:41 RDW 13.4 % (12.1-15.1) 08/27/25 04:41 Plt Count 212 10^3/cmm (157-399) 08/27/25 04:41 MPV 12.9 fL (7.4-10.4) H 08/27/25 04:41 Neut % (Auto) 55.9 % 08/27/25 04:41 Lymph % (Auto) 35.7 % 08/27/25 04:41 [place] % (Auto) 5.0 % 08/27/25 04:41 Eos % (Auto) 2.2 % 08/27/25 04:41 Baso % (Auto) 0.9 % 08/27/25 04:41 Neut # (Auto) 5.14 10^3/uL (1.8-7.7) 08/27/25 04:41 Lymph # (Auto) 3.3 10^3/uL (0.8-4.8) 08/27/25 04:41 Gladwin # (Auto) 0.5 10^3/uL (0.2-0.9) 08/27/25 04:41 Eos # (Auto) 0.2 10^3/uL (0.0-0.8) 08/27/25 04:41 Baso # (Auto) 0.1 10^3/uL (0.0-0.1) 08/27/25 04:41 Nucleated RBC % (auto) 0 % 08/27/25 04:41 Nucleated RBCs # 0.0 /100WBC 08/27/25 04:41 Sodium 138 mmol/L (136-145) 08/27/25 04:41 Potassium 3.7 mmol/L (3.5-5.1) 08/27/25 04:41 Chloride 100 mmol/L (98-107) 08/27/25 04:41 Carbon Dioxide 27 mmol/L (22-29) 08/27/25 04:41 Anion Gap 14.7 (5-19) 08/27/25 04:41 BUN 8 mg/dL (6-20) 08/27/25 04:41 Creatinine 0.8 mg/dL (0.5-0.9) 08/27/25 04:41 GFR Calculation 75.6 mL/min (90-130) L 08/27/25 04:41 Glucose 106 mg/dL (65-115) 08/27/25 04:41 Calculated Osmolality 285 mOsm/kg (285-295) 08/27/25 04:41 Calcium 8.8 mg/dL (8.5-10.5) 08/27/25 04:41 Phosphorus 3.9 mg/dL (2.5-4.5) 08/26/25 04:42 Magnesium 2.2 mg/dL (1.7-2.3) 08/26/25 04:42 Total Bilirubin 0.4 mg/dL (0.15-1.2) 08/26/25 04:42 AST 25 U/L (0-32) 08/26/25 04:42 ALT 16 U/L (0-33) 08/26/25 04:42 Alkaline Phosphatase 102 U/L (35-105) 08/26/25 04:42 Troponin T 5th Gen ng/L 18 ng/L (0-10) H 08/27/25 04:41 Troponin T Baseline 16 ng/L (0-10) H 08/25/25 10:55 Troponin T 60 Minute 19.15 ng/L (0-10) H 08/25/25 11:47 Delta Troponin T 3.15 ABS# (0-10) 08/25/25 11:47 Troponin T Hi Sens 6Hr 14.12 ng/L (0-10) H 08/25/25 16:45 Troponin T Hi Sens 6Hr Delta -1.88 ng/L (0-12) L 08/25/25 16:45 NT-Pro-B Natriuret Pep 3200 pg/mL (0-125) H 08/27/25 04:41 Total Protein 6.1 g/dL (6.6-8.7) L 08/26/25 04:42 Albumin 3.9 g/dL (3.5-5.2) 08/26/25 04:42 Globulin 2.2 g/dL (1.3-4.6) 08/26/25 04:42 Influenza A (PCR) Negative (Negative) 08/25/25 10:55 Influenza Type B (PCR) Negative (Negative) 08/25/25 10:55 RSV (PCR) Negative (Negative) 08/25/25 10:55 SARS-CoV-2 (PCR) Negative (Negative) 08/25/25 10:55 Vitals Last Vital Signs Temp 98.7 F 08/27/25 12:00 Pulse 65 08/27/25 13:56 Resp 18 08/27/25 13:56 BP 102/65 08/27/25 13:56 Pulse Ox 98 08/27/25 13:56 O2 Del Method Room Air 08/27/25 11:56 Discharge Plan Discharge Patient Disposition: Home Condition: Stable Prescriptions: Continued Jardiance 10 mg tablet 10 mg PO QAM Patient Comments: ANT Hardy Entresto 24-26 mg tablet 1 tab PO BID atorvastatin 20 mg tablet 20 mg PO QDAY spironolactone 25 mg tablet 12.5 mg PO DAILY albuterol sulfate 2.5 mg /3 mL (0.083 %) solution for nebulization 2.5 mg INHALATION Q4H PRN (Reason: bronchospasm) Qty: 180 5RF chlorhexidine gluconate [Peridex] 0.12 % mouthwash 15 ml BUCCAL BID PRN (Reason: mouth infection) Qty: 473 5RF ergocalciferol (vitamin D2) 1,250 mcg (50,000 unit) capsule 50,000 unit PO .weekly Qty: 4 5RF Fetzima 120 mg capsule,extended release 24 hr 120 mg PO DAILY Qty: 30 5RF zonisamide 100 mg capsule 100 mg PO BID Qty: 180 1RF olanzapine 2.5 mg tablet 2.5 mg PO BID Qty: 180 1RF (DME) nebulizer and kit (mask/tubing etc) See Rx Instructions .Route .MEDSUPPLY Qty: 1 0RF Rx Instructions: As directed nitroglycerin 0.4 mg tablet, sublingual 0.4 mg SUBLINGUAL Q5M PRN (Reason: chest pain) Qty: 30 2RF aspirin [Adult Low Dose Aspirin] 81 mg tablet,delayed release (DR/EC) 81 mg PO DAILY Eliquis 5 mg tablet 5 mg PO BID amiodarone 200 mg tablet 200 mg PO DAILY Qty: 10 0RF carvedilol [Coreg] 3.125 mg tablet 3.125 mg PO BID Qty: 20 0RF Rx Instructions: refill until see cardiology furosemide 40 mg tablet 40 mg PO QAM lidocaine 5 % adhesive patch,medicated 2 patch topical DAILY Qty: 30 2RF Rx Instructions: leave on most painful area for up to 12 hrs (DME) nebulizers Mis See Rx Instructions .ROUTE .MEDSUPPLY Qty: 1 0RF Rx Instructions: As directed hydrocortisone [Anusol-HC] 2.5 % cream with perineal applicator 1 applic MN DAILY PRN (Reason: hemorrhoids) Qty: 30 1RF ketoconazole 2 % shampoo 1 applic topical .weekly Qty: 120 2RF potassium chloride 8 mEq capsule, extended release 8 meq PO DAILY Qty: 30 2RF albuterol sulfate [Ventolin HFA] 90 mcg/actuation HFA aerosol inhaler 2 puff inhalation QID PRN (Reason: shortness of breath or wheezing) Qty: 8.5 1RF fluticasone furoate-vilanterol [Breo Ellipta] 100-25 mcg/dose blister with device 1 inh inhalation Q24H Qty: 180 1RF ([place] [facility] [place] Instructions .ROUTE .MEDSUPPLY Qty: 1 0RF Rx Instructions: As directed [employer] OK for DC: Cardiology Discharge Order = DC NOW: Discharge Order (Routine); Ordered 08/27/25 Ordered By: Dana Martel Referrals: Mary High NP [Nurse Practitioner, Cardiology] Referral Note: We have notified your physician's clinic of the need for a follow-up appointment to be scheduled. If you have not heard from them within the next 2 business days, please call them directly. Julito Felton, TEXTILE DESIGNS SALES REPRESENTATIVE-C [Primary Care Provider, Family Practice] Referral Note: We have notified your physician's clinic of the need for a follow-up appointment to be scheduled. If you have not heard from them within the next 2 business days, please call them directly. Discharge Diet: Advance as tolerated and Cardiac Discharge Activity: Increase activity as tolerated Patient Instructions: Atrial Fibrillation, Chest Pain - Noncardiac, COPD, Hypokalemia, Heart Failure (DC), Opioid Safety, Post Angiogram Home Care Instructions, Patient Portal & Tom Instructions Discharge Attestations Time Spent in Discharge Care*: greater than 30 min Quality Metrics Clinical Quality Measures [ No reported AMI, CVA or VTE this stay] Coding Level of Care Code 48787 Diagnoses Unstable angina I20.0 Headache R51.9 Hypokalemia E87.6 Chronic obstructive pulmonary disease, unspecified COPD type J44.9 COPD type: unspecified COPD Atrial fibrillation I48.91 Elevated brain natriuretic peptide (BNP) level R79.89
== END 2025-08-27 14:14 | disposition home or self-care (01) | DRG 287 ==
LOC: ER 15:48 → MEDSURG 19:31 → CSU 08-27 09:08
PROVIDERS: Internal Medicine; Nurse Practitioner Family; Admitting Provider Internal Medicine; Emergency Provider Physician Assistant; PCP Nurse Practitioner; Visit Provider Clinical Nurse Specialist Acute Care
PROC: 4A023N7 Measurement of Cardiac Sampling and Pressure, Left Heart, Percutaneous Approach (ICD-10-PCS; principal; 2025-08-27 08:15)
DX: I20.0 Unstable angina (principal); I25.5 Ischemic cardiomyopathy; E87.6 Hypokalemia; J44.9 Chronic obstructive pulmonary disease, unspecified; I48.91 Unspecified atrial fibrillation; Z79.82 Long term (current) use of aspirin; Z79.51 Long term (current) use of inhaled steroids; Z79.01 Long term (current) use of anticoagulants; F17.210 Nicotine dependence, cigarettes, uncomplicated; I50.9 Heart failure, unspecified; Z95.810 Presence of automatic (implantable) cardiac defibrillator; I25.2 Old myocardial infarction; R51.9 Headache, unspecified
CPT/HCPCS: 36415; 71045; 80048; 80053; 83735; 83880; 84100; 84484; 85025; 87637; 93005; 93306; 93458; 94640; 96372; 99152; 99285; C1760; C1769; C1887; C1894; G0269; J1644; J1650; J2250; J3010; J7030; J7613; J7626; J9999; Q0163; Q9967